=== PATIENT | female | born 1940 | race Caucasian/White ===

== ENCOUNTER 2017-09-26 12:11 | Inpatient (IN) | payer MEDICARE, OTHER ==
[2017-09-26] MEDS ORDERED: SODIUM CHLORIDE 0.9% 500 ML IV STA (12:45)
[2017-09-26] MEDS ORDERED: SODIUM CHLORIDE 0.9% 1,000 ML IV STA (12:45)
[2017-09-26] MEDS ORDERED: ONDANSETRON 4 MG/2 ML VIAL IVP STA (12:45)
--- NOTE | 2017-09-26 12:48 | ED ---
General Adult HPI - General Chief complaint: Nausea/Vomiting/Diarrhea Stated complaint: Vomiting, Diarrhea Time Seen by Provider: 09/26/17 12:40 Source: patient, family, RN notes reviewed, old records reviewed Mode of arrival: wheelchair Limitations: physical limitation - History of Present Illness Initial comments: 77-year-old female presented for evaluation of nausea vomiting and diarrhea. Patient's primary care physician is aware of these symptoms. She was sent in this morning by her home care nurse secondary to approximate 6 episodes of vomiting. This was yellow in color. She's been having basically daily vomiting for the past one month. She had had diarrhea which was sent for stool studies and according to patient's son this was negative. She's had no diarrhea and the past 2 days. She also reports cough and runny nose. Denies myalgias. Denies fever or chills. States she does have some central chest pain which is worse with cough. No typical sounding chest pain. Past medical history, patient is legally blind, she has hypertension, diabetes, and previous CVA, and Parkinson's. - Related Data Home Medications Medication Instructions Recorded Confirmed Carbidopa-Levodopa 25-100 mg 1 tab PO QID 01/22/15 09/26/17 [Sinemet 25-100] Diazepam [Valium] 5 mg PO BID PRN 01/22/15 09/26/17 Dipyridamole-Aspirin 200-25 mg 1 tab PO BID 01/22/15 09/26/17 [Aggrenox 25MG -200MG] Fesoterodine Fumarate [Toviaz] 4 mg PO QAM 01/22/15 09/26/17 HYDROcodone/APAP 10-325MG [[place] 1 tab PO Q6H PRN 01/22/15 09/26/17 10] Loratadine [Claritin] 10 mg PO QAM 01/22/15 09/26/17 Meclizine [Antivert] 25 mg PO HS 01/22/15 09/26/17 Pregabalin [Lyrica] 100 mg PO TID 03/22/16 09/26/17 Cholecalciferol (Vitamin D3) 2,000 unit PO DAILY@1200 09/26/17 09/26/17 [Vitamin D3] DULoxetine HCL [Cymbalta] 60 mg PO DAILY 09/26/17 09/26/17 Docusate [Colace] 100 mg PO DAILY PRN 09/26/17 09/26/17 Donepezil [Aricept] 10 mg PO BID 09/26/17 09/26/17 Levofloxacin [Levaquin] 250 mg PO MOWEFR 09/26/17 09/26/17 Meloxicam [Mobic] 7.5 mg PO BID 09/26/17 09/26/17 Montelukast [Singulair] 10 mg PO HS 09/26/17 09/26/17 Ranitidine HCl [Zantac] 150 mg PO BID 09/26/17 09/26/17 rOPINIRole HCL [Requip] 4 mg PO TID 09/26/17 09/26/17 tiZANidine HCL [Zanaflex] 4 mg PO HS 09/26/17 09/26/17 Allergies Allergy/AdvReac Type Severity Reaction Status Date / Time No Known Allergies Allergy Verified 09/26/17 12:48 Review of Systems ROS Statement: Those systems with pertinent positive or pertinent negative responses have been documented in the HPI. ROS Other: All systems not noted in ROS Statement are negative. Past Medical History Past Medical History: CVA/TIA, Dementia, Hyperlipidemia, Hypertension Additional Past Medical History / Comment(s): Blind. PARKINSON. WHEELCHAIR BOUND/ASSIST. History of Any Multi-Drug Resistant Organisms: None Reported Past Surgical History: Cholecystectomy, Orthopedic Surgery Additional Past Surgical History / Comment(s): ORIF LEFT HIP. CARPAL TUNNEL. Past Anesthesia/Blood Transfusion Reactions: No Reported Reaction Past Psychological History: Depression Smoking Status: Never smoker Past Alcohol Use History: None Reported Past Drug Use History: None Reported General Exam Limitations: physical limitation General appearance: alert, in no apparent distress Head exam: Present: atraumatic, normocephalic ENT exam: Present: mucous membranes dry Neck exam: Present: normal inspection. Absent: tenderness, meningismus Respiratory exam: Present: normal lung sounds bilaterally. Absent: respiratory distress Cardiovascular Exam: Present: regular rate, normal rhythm GI/Abdominal exam: Present: soft, tenderness (Mild epigastric tenderness to palpation). Absent: distended, guarding Extremities exam: Present: normal inspection, normal capillary refill. Absent: pedal edema Neurological exam: Present: alert. Absent: motor sensory deficit Psychiatric exam: Present: normal affect, normal mood Skin exam: Present: warm, dry, intact. Absent: cyanosis, diaphoretic Course Vital Signs 09/26/17 12:22 Temperature 98.2 F Pulse Rate 74 Respiratory 18 Rate Blood Pressure 152/72 O2 Sat by Pulse 93 L Oximetry Medical Decision Making - Medical Decision Making 77-year-old female presenting with chronic nausea vomiting and diarrhea. Patient's abdomen is soft, minimal epigastric tenderness. Laboratory studies reveal normal white blood cell count, stable hemoglobin, potassium is low at 3.1 which is replaced. Patient's symptoms have been ongoing for some time. X- ray of the abdomen is negative for acute findings no obstruction or free air. Chest x-ray negative for acute intrathoracic process. Influenza negative. UA shows no signs of infection. Patient will be admitted for IV hydration, likely replacement, and GI consultation. - Lab Data Result diagrams: 09/26/17 13:30 09/26/17 13:30 Lab Results 09/26/17 09/26/17 09/26/17 Range/Units 13:30 13:30 13:30 WBC 6.7 (3.8-10.6) k/uL RBC 4.67 (3.80-5.40) m/uL Hgb 14.1 (11.4-16.0) gm/dL Hct 43.8 (34.0-46.0) % MCV 93.8 (80.0-100.0) fL MCH 30.3 (25.0-35.0) pg MCHC 32.3 (31.0-37.0) g/dL RDW 13.7 (11.5-15.5) % Plt Count 181 (150-450) k/uL Neutrophils % 75 % Lymphocytes % 18 % Monocytes % 4 % Eosinophils % 1 % Basophils % 1 % Neutrophils # 5.1 (1.3-7.7) k/uL Lymphocytes # 1.2 (1.0-4.8) k/uL Monocytes # 0.3 (0-1.0) k/uL Eosinophils # 0.1 (0-0.7) k/uL Basophils # 0.0 (0-0.2) k/uL PT (9.0-12.0) sec INR (<1.2) APTT (22.0-30.0) sec Sodium 145 (137-145) mmol/L Potassium 3.1 L (3.5-5.1) mmol/L Chloride 104 (98-107) mmol/L Carbon Dioxide 29 (22-30) mmol/L Anion Gap 12 mmol/L BUN 13 (7-17) mg/dL Creatinine 0.70 (0.52-1.04) mg/dL Est GFR (MDRD) Af Amer >60 (>60 ml/min/1.73 sqM) Est GFR (MDRD) Non-Af >60 (>60 ml/min/1.73 sqM) Glucose 134 H (74-99) mg/dL Plasma Lactic Acid José Miguel 0.8 (0.7-2.0) mmol/L Calcium 9.2 (8.4-10.2) mg/dL Total Bilirubin 0.8 (0.2-1.3) mg/dL AST 34 (14-36) U/L ALT 13 (9-52) U/L Alkaline Phosphatase 73 (38-126) U/L Troponin I (0.000-0.034) ng/mL Total Protein 6.7 (6.3-8.2) g/dL Albumin 3.8 (3.5-5.0) g/dL Amylase 50 (30-110) U/L Lipase 105 (23-300) U/L Urine Color Urine Appearance (Clear) Urine pH (5.0-8.0) Ur Specific [place] (1.001-1.035) Urine Protein (Negative) Urine Glucose (UA) (Negative) Urine Ketones (Negative) Urine Blood (Negative) Urine Nitrite (Negative) Urine Bilirubin (Negative) Urine Urobilinogen (<2.0) mg/dL Ur Leukocyte Esterase (Negative) Urine RBC (0-5) /hpf Urine WBC (0-5) /hpf Hyaline Casts (0-2) /lpf Urine Mucus (None) /hpf Influenza Type A RNA (Not Detectd) Influenza Type B (PCR) (Not Detectd) 09/26/17 09/26/17 09/26/17 Range/Units 13:30 13:30 13:30 WBC (3.8-10.6) k/uL RBC (3.80-5.40) m/uL Hgb (11.4-16.0) gm/dL Hct (34.0-46.0) % MCV (80.0-100.0) fL MCH (25.0-35.0) pg MCHC (31.0-37.0) g/dL RDW (11.5-15.5) % Plt Count (150-450) k/uL Neutrophils % % Lymphocytes % % Monocytes % % Eosinophils % % Basophils % % Neutrophils # (1.3-7.7) k/uL Lymphocytes # (1.0-4.8) k/uL Monocytes # (0-1.0) k/uL Eosinophils # (0-0.7) k/uL Basophils # (0-0.2) k/uL PT 9.9 (9.0-12.0) sec INR 1.0 (<1.2) APTT 22.7 (22.0-30.0) sec Sodium (137-145) mmol/L Potassium (3.5-5.1) mmol/L Chloride (98-107) mmol/L Carbon Dioxide (22-30) mmol/L Anion Gap mmol/L BUN (7-17) mg/dL Creatinine (0.52-1.04) mg/dL Est GFR (MDRD) Af Amer (>60 ml/min/1.73 sqM) Est GFR (MDRD) Non-Af (>60 ml/min/1.73 sqM) Glucose (74-99) mg/dL Plasma Lactic Acid José Miguel (0.7-2.0) mmol/L Calcium (8.4-10.2) mg/dL Total Bilirubin (0.2-1.3) mg/dL AST (14-36) U/L ALT (9-52) U/L Alkaline Phosphatase (38-126) U/L Troponin I <0.012 (0.000-0.034) ng/mL Total Protein (6.3-8.2) g/dL Albumin (3.5-5.0) g/dL Amylase (30-110) U/L Lipase (23-300) U/L Urine Color Urine Appearance (Clear) Urine pH (5.0-8.0) Ur Specific [place] (1.001-1.035) Urine Protein (Negative) Urine Glucose (UA) (Negative) Urine Ketones (Negative) Urine Blood (Negative) Urine Nitrite (Negative) Urine Bilirubin (Negative) Urine Urobilinogen (<2.0) mg/dL Ur Leukocyte Esterase (Negative) Urine RBC (0-5) /hpf Urine WBC (0-5) /hpf Hyaline Casts (0-2) /lpf Urine Mucus (None) /hpf Influenza Type A RNA Not Detected (Not Detectd) Influenza Type B (PCR) Not Detected (Not Detectd) 09/26/17 Range/Units 13:40 WBC (3.8-10.6) k/uL RBC (3.80-5.40) m/uL Hgb (11.4-16.0) gm/dL Hct (34.0-46.0) % MCV (80.0-100.0) fL MCH (25.0-35.0) pg MCHC (31.0-37.0) g/dL RDW (11.5-15.5) % Plt Count (150-450) k/uL Neutrophils % % Lymphocytes % % Monocytes % % Eosinophils % % Basophils % % Neutrophils # (1.3-7.7) k/uL Lymphocytes # (1.0-4.8) k/uL Monocytes # (0-1.0) k/uL Eosinophils # (0-0.7) k/uL Basophils # (0-0.2) k/uL PT (9.0-12.0) sec INR (<1.2) APTT (22.0-30.0) sec Sodium (137-145) mmol/L Potassium (3.5-5.1) mmol/L Chloride (98-107) mmol/L Carbon Dioxide (22-30) mmol/L Anion Gap mmol/L BUN (7-17) mg/dL Creatinine (0.52-1.04) mg/dL Est GFR (MDRD) Af Amer (>60 ml/min/1.73 sqM) Est GFR (MDRD) Non-Af (>60 ml/min/1.73 sqM) Glucose (74-99) mg/dL Plasma Lactic Acid José [place] (0.7-2.0) mmol/L Calcium (8.4-10.2) mg/dL Total Bilirubin (0.2-1.3) mg/dL AST (14-36) U/L ALT (9-52) U/L Alkaline Phosphatase (38-126) U/L Troponin I (0.000-0.034) ng/mL Total Protein (6.3-8.2) g/dL Albumin (3.5-5.0) g/dL Amylase (30-110) U/L Lipase (23-300) U/L Urine Color Yellow Urine Appearance Clear (Clear) Urine pH 6.0 (5.0-8.0) Ur Specific [place] 1.023 (1.001-1.035) Urine Protein 2+ H (Negative) Urine Glucose (UA) Negative (Negative) Urine Ketones 2+ H (Negative) Urine Blood Trace H (Negative) Urine Nitrite Negative (Negative) Urine Bilirubin Negative (Negative) Urine Urobilinogen 2.0 (<2.0) mg/dL Ur Leukocyte Esterase Negative (Negative) Urine RBC 3 (0-5) /hpf Urine WBC 10 H (0-5) /hpf Hyaline Casts 14 H (0-2) /lpf Urine Mucus Many H (None) /hpf Influenza Type A RNA (Not Detectd) Influenza Type B (PCR) (Not Detectd) Disposition Clinical Impression: Dehydration, Nausea vomiting and diarrhea, Hypokalemia Disposition: ADMITTED IP TO THIS [facility] Condition: Stable Referrals: Vadim Gary DO [Primary Care Provider] - 1-2 days Decision to Admit Reason: Admit from EC Decision Date: 09/26/17 Decision Time: 15:29
[2017-09-26 13:44] LABS: Basophils % (A) 1 %; Eosinophils # (A) 0.1 k/uL (0-0.7); Eosinophils % (A) 1 %; HCT 43.8 % (34.0-46.0); HGB 14.1 gm/dL (11.4-16.0); Lymphocytes # (A) 1.2 k/uL (1.0-4.8); Lymphocytes % (A) 18 %; MCH 30.3 pg (25.0-35.0); MCHC 32.3 g/dL (31.0-37.0); MCV 93.8 fL (80.0-100.0); Mean Platelet Volume 7.1; Monocytes # (A) 0.3 k/uL (0-1.0); Monocytes % (A) 4 %; Neutrophils # (A) 5.1 k/uL (1.3-7.7); Neutrophils % (A) 75 %; Platelet Count 181 k/uL (150-450); RBC 4.67 m/uL (3.80-5.40); RDW 13.7 % (11.5-15.5); WBC 6.7 k/uL (3.8-10.6)
[2017-09-26 13:50] LABS: Partial Thromboplastin Time 22.7 sec (22.0-30.0); Prothrombin Time 9.9 sec (9.0-12.0)
[2017-09-26 13:55] LABS: ALT 13 U/L (9-52); AST 34 U/L (14-36); Albumin 3.8 g/dL (3.5-5.0); Alkaline Phosphatase 73 U/L (38-126); Amylase 50 U/L (30-110); Anion Gap 12 mmol/L; Blood Urea Nitrogen 13 mg/dL (7-17); Calcium 9.2 mg/dL (8.4-10.2); Carbon Dioxide 29 mmol/L (22-30); Chloride 104 mmol/L (98-107); Glucose 134 mg/dL (74-99); Lipase 105 U/L (23-300); Potassium 3.1 mmol/L (3.5-5.1); Sodium 145 mmol/L (137-145); Total Bilirubin 0.8 mg/dL (0.2-1.3); Total Protein 6.7 g/dL (6.3-8.2)
[2017-09-26 13:57] LABS: Appearance,Urine Clear (Clear); Bilirubin,Urine Negative (Negative); Blood,Urine Trace (Negative); Color,Urine Yellow; Glucose,Urine (UA) Negative (Negative); Hyaline Casts,Urine 14 /lpf (0-2); Ketones,Urine 2+ (Negative); Leukocyte Esterase,Urine Negative (Negative); Mucus,Urine Many /hpf; Nitrite,Urine Negative (Negative); Protein,Urine 2+ (Negative); RBC,Urine 3 /hpf (0-5); Specific Gravity,Urine 1.023 (1.001-1.035); WBC,Urine 10 /hpf (0-5)
--- NOTE | 2017-09-26 14:29 | XR ---
EXAMINATION TYPE: XR chest 2V DATE OF EXAM: 09/26/2017 COMPARISON: Prior chest x-ray May 30, 2016 HISTORY: On and off coughing for 3 months. TECHNIQUE: Frontal and lateral views of the chest are obtained. FINDINGS: There is chronic parenchymal change without suspicious focal air space opacity, pleural ef fusion, or pneumothorax seen. The cardiac silhouette size is mildly enlarged with atherosclerotic an d ectatic aorta. The osseous structures are demineralized. Cholecystectomy clips are noted. There i s vertebroplasty superior T12 endplate IMPRESSION: Chronic changes and mild cardiomegaly without acute pulmonary process.
--- NOTE | 2017-09-26 14:33 | XR ---
EXAMINATION TYPE: XR KUB DATE OF EXAM: 09/26/2017 2:22 PM CLINICAL HISTORY: On and off coughing for 3 months with occasional vomiting. TECHNIQUE: Two supine KUB images of the abdomen are obtained. COMPARISON: Abdominal x-ray series January 19, 2011. FINDINGS: Scattered gas is seen in non-distended stomach and small bowel loops. Gas and fecal materia l is seen in non-distended colon. Cholecystectomy clips are seen. There is vertebroplasty superior T1 2 level extending into disc space redemonstrated. Osseous structures are demineralized. Metallic hard lopez through healed fracture left proximal femur is redemonstrated. Extensive vascular calcification bilateral pelvis and groin region is again seen. No pneumoperitoneum is noted. IMPRESSION: Overall nonobstructive bowel gas pattern. No significant change from prior.
[2017-09-26] MEDS: POTASSIUM CHLORIDE 20 MEQ in WATER FOR INJECTION 1 100ML.BAG IVPB SCH ×2 (15:25→17:16)
[2017-09-26] MEDS ORDERED: NALOXONE 0.4 MG/ML 1 ML VIAL IV PRN (15:26)
[2017-09-26] MEDS ORDERED: hydrALAZINE HCL 20 MG/ML 1 ML VIAL IVP STA (15:37)
[2017-09-26 16:47] VITALS: BMI 30.2
[2017-09-26] MEDS ORDERED: DIAZEPAM 5 MG TAB PO PRN (18:22)
[2017-09-26] MEDS: DIPYRIDAMOLE-ASPIRIN 200-25 MG 1 EACH CPMP.12HR PO SCH (20:41)
[2017-09-26] MEDS: CARBIDOPA-LEVODOPA 25-100 MG 1 EACH TAB PO SCH ×2 (20:41→22:18)
[2017-09-26] MEDS: MELOXICAM 7.5 MG TAB PO SCH (20:41)
[2017-09-26] MEDS: MONTELUKAST 10 MG TAB PO SCH (20:41)
[2017-09-26] MEDS: FAMOTIDINE 20 MG TAB PO SCH (20:42)
[2017-09-26] MEDS: rOPINIRole HCL 4 MG TABLET PO SCH ×2 (20:42→22:17)
[2017-09-26] MEDS: tiZANidine 4 MG TAB PO SCH (20:42)
[2017-09-26] MEDS: DULoxetine HCL 60 MG CAPSULE.DR PO SCH (20:42)
[2017-09-26] MEDS: LORATADINE 10 MG TAB PO SCH (20:42)
[2017-09-26] MEDS: DONEPEZIL 10 MG TAB PO SCH (20:42)
[2017-09-26] MEDS: ONDANSETRON 4 MG/2 ML VIAL IVP PRN (20:49)
[2017-09-26] MEDS: PREGABALIN 100 MG CAP PO SCH ×2 (20:49→22:17)
[2017-09-26] MEDS ORDERED: MECLIZINE 25 MG TAB PO SCH (21:00)
[2017-09-27] MEDS: HYDROcodone/APAP 10-325MG 1 EACH TAB PO PRN ×2 (00:57→09:05)
[2017-09-27 07:14] LABS: Basophils % (A) 1 %; Eosinophils % (A) 1 %; HCT 43.8 % (34.0-46.0); HGB 13.3 gm/dL (11.4-16.0); Hypochromasia Slight; Lymphocytes # (A) 1.4 k/uL (1.0-4.8); Lymphocytes % (A) 19 %; MCH 29.9 pg (25.0-35.0); MCHC 30.4 g/dL (31.0-37.0); MCV 98.3 fL (80.0-100.0); Mean Platelet Volume 6.9; Monocytes # (A) 0.5 k/uL (0-1.0); Monocytes % (A) 7 %; Neutrophils # (A) 5.3 k/uL (1.3-7.7); Neutrophils % (A) 72 %; Platelet Count 166 k/uL (150-450); RBC 4.46 m/uL (3.80-5.40); RDW 13.7 % (11.5-15.5); WBC 7.4 k/uL (3.8-10.6)
[2017-09-27 07:26] LABS: ALT 25 U/L (9-52); AST 33 U/L (14-36); Albumin 3.3 g/dL (3.5-5.0); Alkaline Phosphatase 68 U/L (38-126); Anion Gap 8 mmol/L; Blood Urea Nitrogen 13 mg/dL (7-17); Calcium 9.1 mg/dL (8.4-10.2); Carbon Dioxide 32 mmol/L (22-30); Chloride 105 mmol/L (98-107); Glucose 107 mg/dL (74-99); Potassium 3.5 mmol/L (3.5-5.1); Sodium 145 mmol/L (137-145); Total Bilirubin 0.8 mg/dL (0.2-1.3)
[2017-09-27] MEDS: rOPINIRole HCL 4 MG TABLET PO SCH ×3 (07:33→21:18)
[2017-09-27] MEDS: OXYBUTYNIN XL 5 MG TAB.ER.24 PO SCH (07:34)
[2017-09-27] MEDS: CARBIDOPA-LEVODOPA 25-100 MG 1 EACH TAB PO SCH ×4 (07:34→21:18)
[2017-09-27] MEDS: MELOXICAM 7.5 MG TAB PO SCH ×2 (07:35→21:18)
[2017-09-27] MEDS: DONEPEZIL 10 MG TAB PO SCH (07:38)
[2017-09-27] MEDS: LORATADINE 10 MG TAB PO SCH (07:38)
[2017-09-27] MEDS: DIPYRIDAMOLE-ASPIRIN 200-25 MG 1 EACH CPMP.12HR PO SCH ×2 (07:39→21:19)
[2017-09-27] MEDS: DULoxetine HCL 60 MG CAPSULE.DR PO SCH (07:39)
[2017-09-27] MEDS: FAMOTIDINE 20 MG TAB PO SCH (07:39)
[2017-09-27] MEDS: PREGABALIN 100 MG CAP PO SCH (07:44)
[2017-09-27] MEDS ORDERED: PANTOPRAZOLE 40 MG/10 ML VIAL IV SCH (09:00)
[2017-09-27] MEDS: ONDANSETRON 4 MG/2 ML VIAL IVP PRN (09:51)
[2017-09-27] MEDS ORDERED: CHOLECALCIFEROL 1,000 UNIT TAB PO SCH (12:00)
--- NOTE | 2017-09-27 13:28 | CONS ---
CONSULTATION DATE OF SERVICE: 09/26/2017 REASON FOR CONSULTATION: Nausea, vomiting, and diarrhea. HISTORY OF PRESENTING ILLNESS: The patient is a 77-year-old pleasant white female admitted, was admitted to the hospital because of nausea, vomiting, and diarrhea on and off for the last one month duration. Apparently, she has been having episodes almost on a daily basis. Has about 3 to 4 loose watery bowel movements daily. Came to the emergency room and according to the nursing staff, she did not have any further episodes of nausea, vomiting. In fact, she had a solid bowel movement last night. She denies any abdominal pain. Reports no recent NSAID use. She does not recall being on any antibiotics recently. However, she states that she has been maintained on Levaquin for some lung infection. This morning, she is feeling better on a clear liquid diet, tolerating well. No rectal bleeding or melena. PAST MEDICAL HISTORY: Significant for hypertension, hyperlipidemia, dementia, Parkinson's disease, history of CVA in the past, degenerative joint disease. MEDICATIONS: At home, Zanaflex, Requip, Zantac, Singular, Mobic, Levaquin, Aricept, Colace, Cymbalta, vitamin D3, Lyrica, Antivert, Claritin, Toviaz, Aggrenox, Sinemet, and Valium. PAST SURGICAL HISTORY: Carpal tunnel repair, cholecystectomy. ALLERGIES: None. SOCIAL HISTORY: No smoking or alcohol use. FAMILY HISTORY: Unremarkable. REVIEW OF SYSTEMS: CARDIOPULMONARY: No chest pain, shortness of breath. GENITOURINARY: No dysuria or hematuria. MUSCULOSKELETAL: She complains of back pain. NEUROLOGY: Unremarkable. PSYCHIATRIC: Unremarkable. ENT: Vision unremarkable. CONSTITUTIONAL: No recent weight loss. No fever, chills, night sweats. HEMATOLOGY: Unremarkable. ENDOCRINE: Unremarkable. PHYSICAL EXAMINATION: She appears comfortable. No apparent distress. VITAL SIGNS: Stable. Blood pressure 160/77, pulse 80, temperature 97.2. HEENT EXAMINATION: Unremarkable. Conjunctivae are pink, sclera nonicteric. Oral cavity no lesions. NECK: No JVD or lymph node enlargement. CHEST: Clear to auscultation. HEART: Regular rate and rhythm. ABDOMEN: Soft. Bowel sounds are positive. No organomegaly. EXTREMITIES: No pedal edema. SKIN: No rashes. NEURO: Alert and oriented x3. No focal deficits. LABS: WBC is 5.8, hemoglobin 13.3, platelets are normal. Basic metabolic panel is within normal limits. PT, INR is within normal limits. Amylase and lipase are normal. IMPRESSION: This is a lady who presents to the hospital with nausea, vomiting, and diarrhea on and off for the last one month duration, but since being in the hospital did not have any episodes of any of the symptoms, presently on Pepcid and Protonix, tolerating well. As per the nursing staff, she had a solid bowel movement last night. She is on a clear liquid diet, tolerating well. RECOMMENDATIONS: 1. Continue with symptomatic and supportive care. 2. Antiemetics as needed. 3. Continue with Pepcid and Protonix 40 mg daily. 4. Since her symptoms are improving, I will not do any further endoscopic workup at this time. Will follow her closely during her hospital stay. Thank you for this consultation. MMIMANIL / GEOFFREYN: [id number] /
--- NOTE | 2017-09-27 15:34 | HP ---
HISTORY AND PHYSICAL DATE OF ADMISSION: 09/26/2017 PRESENTING COMPLAINT: Nausea, vomiting, diarrhea, tired. HISTORY OF PRESENTING COMPLAINT: This is a 77-year-old patient of Dr. Gary. History is obtained from the son at the bedside. Chronic stable medical conditions include Alzheimer's dementia, hypertension, hyperlipidemia, blind, parkinson disease, depression. The patient comes with a multitude of symptoms. The patient has been having nausea and vomiting off and on for at least 4 weeks. Yesterday she had a lot of vomiting for about an hour. Appetite has not been good. The patient does get intermittent occasional abdominal pain, sometimes gets diarrhea with a variable pattern. The patient at her baseline uses a wheelchair, can sometimes feed herself, other times not. She is able to eat small amounts. Daughter- in-law also helps her at home sometimes and sometimes [facility] comes out to help her. The patient is rather distant about the history herself. She is able to follow commands and answer some very simple questions. REVIEW OF SYSTEMS: CONSTITUTIONAL: Tired. HEENT: Blind. Decreased hearing. RESPIRATORY: None. CARDIOVASCULAR: None. GASTROINTESTINAL: As above. GENITOURINARY: Some incontinence. DERMATOLOGICAL: None. HEMATOLOGICAL: None. LYMPHATICS: None. PSYCHIATRY: Forgetful. NEUROLOGICAL: Patient does shake when she is made to stand up. PAST MEDICAL HISTORY: 1. Stroke. 2. Dementia. 3. Hypertension. 4. Hyperlipidemia. 5. Blind. 6. Parkinson disease. 7. Depression. PAST SURGICAL HISTORY: 1. Cholecystectomy. 2. ORIF of the left hip. SOCIAL HISTORY: No smoking. No alcohol. Wheelchair-bound. Lives with her son. FAMILY HISTORY: Congestive heart failure. HOME MEDICATION: 1. [place] 10 one tablet q.6 p.r.n. 2. Colace 100 mg p.o. daily p.r.n. 3. Mobic 7.5 p.o. b.i.d. 4. Levaquin 250 mg Saturday, Saturday, Saturday. 5. Valium 5 mg p.o. b.i.d. p.r.n. 6. Zanaflex 4 mg p.o. at bedtime. 7. Aricept 10 mg p.o. b.i.d. 8. Singulair 10 mg at bedtime. 9. Antivert 25 mg at bedtime. 10.Vitamin D3 2000 units p.o. daily. 11.Requip 4 mg p.o. t.i.d. 12.Lyrica 100 mg t.i.d. 13.Sinemet 25/100 one tablet q.i.d. 14.Zantac 150 p.o. b.i.d. 15.Aggrenox 1 tablet p.o. b.i.d. 16.Claritin 10 mg p.o. daily. 17.Toviaz 4 mg p.o. daily. 18.Cymbalta 60 mg p.o. daily. ALLERGIES: NONE. PHYSICAL EXAMINATION: VITAL SIGNS ON PRESENTATION: Temperature 98.2, pulse 74, respiration 18, blood pressure 152/72, pulse ox 93% on room air. GENERAL APPEARANCE: Well built. BMI 30.2. Lying in bed, tired-appearing. EYES: Pupils equal. Conjunctivae pale. HEENT: External appearance of nose and ears normal. Oral cavity dry mucous membrane. NECK: JVD not raised. Mass not palpable. RESPIRATORY: Effort normal. LUNGS: Fair air entry. CARDIOVASCULAR: First and second sounds normal. No edema. ABDOMEN: Soft, nontender. Liver and spleen not palpable. LYMPHATIC: No lymph node palpable in neck or axillae. PSYCHIATRY: Patient is able answer some questions. NEUROLOGICAL: Pupils equal. No facial asymmetry. Currently there is no tremor or rigidity. MUSCULOSKELETAL: Evidence of osteoarthritis in multiple joints. INVESTIGATIONS: White count 7.4, hemoglobin 13.3, potassium 3.1, BUN 13, creatinine 0.75. UA showing some ketone 2+, blood 1+. Influenza negative. ASSESSMENT: 1. This is a patient who presents with nausea, vomiting, diarrhea of intermittent and variable duration. It may be noted that the patient is on Aricept, Antivert, Claritin, and all have a significant anticholinergic effect that could well be causing these symptoms. At this point, we will go ahead and discontinue the same. 2. Alzheimer's dementia, late onset type. 3. Essential hypertension. 4. Hyperlipidemia. 5. The patient is blind in both eyes, not even able to perceive light. 6. Parkinson disease, idiopathic. 7. Depression not otherwise specified. PLAN: At this point we will stop the patient's Aricept, Antivert, Claritin. The patient is on Colace, which does not serve much of a function; instead replace with Metamucil for bulk forming. The patient is also on Valium, a rather hefty dos. Will discontinue that for right now. We will also stop patient's vitamin D3. Will see how she does. I did speak to the nurse to have the patient assisted in feeding. I am hoping that with stopping these drugs the patient actually will feel better. MMJULEE / GEOFFREYN: [id number] /
[2017-09-27] MEDS: PSYLLIUM HUSK 100% 6 GM PACKET PO SCH ×2 (16:38→16:57)
[2017-09-27] MEDS: MONTELUKAST 10 MG TAB PO SCH (21:18)
[2017-09-27] MEDS: tiZANidine 4 MG TAB PO SCH (21:19)
[2017-09-28] MEDS: HYDROcodone/APAP 10-325MG 1 EACH TAB PO PRN ×2 (02:06→11:01)
[2017-09-28] MEDS: ONDANSETRON 4 MG/2 ML VIAL IVP PRN (02:06)
[2017-09-28] MEDS ORDERED: ACETAMINOPHEN TAB 325 MG TAB PO STA (03:27)
[2017-09-28] MEDS ORDERED: METOCLOPRAMIDE 5 MG/ML 2 ML VIAL IVP STA (03:28)
[2017-09-28] MEDS: CARBIDOPA-LEVODOPA 25-100 MG 1 EACH TAB PO SCH ×4 (09:21→20:47)
[2017-09-28] MEDS: MELOXICAM 7.5 MG TAB PO SCH ×2 (09:21→19:46)
[2017-09-28] MEDS: DULoxetine HCL 60 MG CAPSULE.DR PO SCH (09:21)
[2017-09-28] MEDS: DIPYRIDAMOLE-ASPIRIN 200-25 MG 1 EACH CPMP.12HR PO SCH ×2 (09:21→19:47)
[2017-09-28] MEDS: rOPINIRole HCL 4 MG TABLET PO SCH ×3 (09:22→20:47)
[2017-09-28] MEDS: OXYBUTYNIN XL 5 MG TAB.ER.24 PO SCH (09:22)
[2017-09-28] MEDS: PANTOPRAZOLE 40 MG TABLET PO SCH (09:22)
[2017-09-28] MEDS: PREGABALIN 100 MG CAP PO SCH ×2 (09:30→19:46)
[2017-09-28] MEDS: PSYLLIUM HUSK 100% 6 GM PACKET PO SCH (11:09)
--- NOTE | 2017-09-28 17:51 | P.PN ---
Progress Note - Text Progress Note Date: 09/28/17 DATE OF SERVICE: 09/28/2017 PRESENTING COMPLAINT: Nausea vomiting diarrhea and increasing feeling of exhaustion. HISTORY OF PRESENT ILLNESS: 77-year-old female who is legally blind has Parkinson's disease, Alzheimer's dementia, presented with nausea and vomiting off and on for the last 4 weeks. Has had intermittent occasional abdominal pain with some diarrhea in a variable pattern. Uses a wheelchair at baseline. Able to feed herself sometimes other times not able. Eats very small amounts. Currently lives with her son and [id number]. Answers very simple questions and follows simple straightforward commands. Came for further evaluation because a lot of vomiting for about an hour appetite is been very poor. INTERVAL HISTORY: 09/28/2017: Sitting up on the bedside commode, complaining of abdominal pain and diarrhea. Appetite has been poor today. Barely eating 25 % of her breakfast. Requires 2 person assist to get to and from the bedside commode and back to bed. States she feels very poorly today. Last BM 09/28/2017. REVIEW OF SYSTEMS: Done for constitutional ,cardiovascular, GI, pulmonary with relevant findings as above. CURRENT MEDICATIONS [place], Sinemet, Aggrenox, Cymbalta, mobile, Singulair, Narcan, Zofran, oxybutynin, Protonix, Lyrica, Metamucil, Requip, Zanaflex. PHYSICAL EXAM VITAL SIGNS: Temp temperature 97.3, pulse 78, respiratory rate 20, blood pressure 154/84, oxygen saturation 93% on room air. GENERAL APPEARANCE: Sitting up at bedside commode, uncomfortable appearing. HENT: Normocephalic, JVD not raised. Mass not palpable. Oral cavity dry mucous membranes, external appearance of ears and nose normal. EYES:Pupils equal. Conjunctiva normal. RESPIRATORY: Respiratory effort normal. Lungs diminished to auscultation. CARDIOVASCULAR: First and second sounds normal. No edema. ABDOMEN: Soft. Liver and spleen not palpable. No tenderness. No mass palpable. PSYCHIATRY: Able to answer simple straightforward questions. Mood and affect somewhat anxious appearing. INVESTIGATIONS: LABS: None new ASSESSMENT: -Nausea vomiting diarrhea of intermittent and variable duration. Possible likely culprits may be Aricept, Antivert, Claritin which all have anticholinergic effects that can cause these symptoms, these agents have been discontinued. -Alzheimer's dementia, late onset type. -Essential hypertension. -Hyperlipidemia. 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 -Parkinson's disease, idiopathic -Depression, not otherwise specified. PLAN: Aricept Antivert and Claritin have all been DC'd however a significant improvement in patient's overall condition is not been noted. We'll continue to hold these medications for the time being and monitor and adjust as necessary. FINANCIAL SERVICES SALES REPRESENTATIVE statement: Patient was seen and examined by nurse practitioner Nikkie Holland and all elements of the case discussed with attending Dr. Mcdonald
[2017-09-28] MEDS: LACTATED RINGERS 1,000 ML IV SCH (19:46)
[2017-09-28] MEDS: tiZANidine 4 MG TAB PO SCH (19:47)
[2017-09-28] MEDS: MONTELUKAST 10 MG TAB PO SCH (19:47)
--- NOTE | 2017-09-29 00:44 | PN ---
PROGRESS NOTE DATE OF SERVICE: 09/28/17 ATTENDING NOTE: Patient was seen and examined by me. Discussed with nurse practitioner Ms. Holland. This is a patient presented with nausea, vomiting, diarrhea. Had discontinued the patient's Aricept, Antivert and Claritin. The patient did get some orange this morning and did throw up. The patient had some loose stools. Stool studies have come back negative. On exam abdomen is soft, nontender. The patient looks a bit more awake to me. ASSESSMENT: 1. Prominent anticholinergic side affects off Aricept, Antivert Claritin that all have been discontinued. 2. Persistent nausea, vomiting with poor oral intake. Could be a combination of the fact that the patient is on Mobic and Aggrenox. At this point discontinue the Aggrenox, just give baby aspirin. Add also Tums. 3. Intermittent diarrhea. We will add IV fluids. Metamucil, the patient had thrown up earlier. Will see how that goes. The patient definitely weak and tired. It is not safe to go home. Need at least 2 nights in the hospital as oral intake is poor. Getting IV fluids and medications are to be closely adjusted. We will also add Reglan to see that helps with the nausea. MMODL / IJN: [id number] /
[2017-09-29] MEDS: CALCIUM CARBONATE LIQUID 500 MG/5 ML CUP PO SCH ×3 (08:44→17:44)
[2017-09-29] MEDS: METOCLOPRAMIDE 5 MG TAB PO SCH ×3 (08:44→17:44)
[2017-09-29] MEDS: DULoxetine HCL 60 MG CAPSULE.DR PO SCH (08:45)
[2017-09-29] MEDS: ASPIRIN 81 MG PO SCH (08:45)
[2017-09-29] MEDS: PANTOPRAZOLE 40 MG TABLET PO SCH (08:45)
[2017-09-29] MEDS: CARBIDOPA-LEVODOPA 25-100 MG 1 EACH TAB PO SCH ×3 (08:45→17:44)
[2017-09-29] MEDS: OXYBUTYNIN XL 5 MG TAB.ER.24 PO SCH (08:45)
[2017-09-29] MEDS: rOPINIRole HCL 4 MG TABLET PO SCH ×3 (08:46→21:47)
[2017-09-29] MEDS: PSYLLIUM HUSK 100% 6 GM PACKET PO SCH ×2 (08:46→17:42)
[2017-09-29] MEDS: LACTATED RINGERS 1,000 ML IV SCH ×2 (08:46→21:48)
[2017-09-29] MEDS: PREGABALIN 100 MG CAP PO SCH ×2 (08:49→21:47)
[2017-09-29] MEDS: HYDROcodone/APAP 10-325MG 1 EACH TAB PO PRN (13:43)
--- NOTE | 2017-09-29 20:06 | P.PN ---
Progress Note - Text Progress Note Date: 09/29/17 DATE OF SERVICE: 09/29/2017 PRESENTING COMPLAINT: Nausea vomiting diarrhea and increasing feeling of exhaustion. HISTORY OF PRESENT ILLNESS: 77-year-old female who is legally blind has Parkinson's disease, Alzheimer's dementia, presented with nausea and vomiting off and on for the last 4 weeks. Has had intermittent occasional abdominal pain with some diarrhea in a variable pattern. Uses a wheelchair at baseline. Able to feed herself sometimes other times not able. Eats very small amounts. Currently lives with her son and [id number]. Answers very simple questions and follows simple straightforward commands. Came for further evaluation because a lot of vomiting for about an hour appetite is been very poor. INTERVAL HISTORY: 09/29/2017: Lying in bed, no complaints of any abdominal pain continues to have some diarrhea had 2 episodes today. Appetite is improving slightly needs lots of encouragement. Ensure shakes added and is drinking those. Requires a 2 person assist to get in and out of the bed. Was up the chair for most of the day. 09/28/2017: Sitting up on the bedside commode, complaining of abdominal pain and diarrhea. Appetite has been poor today. Barely eating 25 % of her breakfast. Requires 2 person assist to get to and from the bedside commode and back to bed. States she feels very poorly today. Last BM 09/28/2017. REVIEW OF SYSTEMS: Done for constitutional ,cardiovascular, GI, pulmonary with relevant findings as above. CURRENT MEDICATIONS [place], Sinemet, Aggrenox, Cymbalta, mobile, Singulair, Narcan, Zofran, oxybutynin, Protonix, Lyrica, Metamucil, Requip, Zanaflex. PHYSICAL EXAM VITAL SIGNS: Temperature 97.5, pulse 69, respiratory rate 16, blood pressure 150/74, oxygen saturation 97% on 2 L GENERAL APPEARANCE: During in bed appears comfortable HENT: Normocephalic, JVD not raised. Mass not palpable. Oral cavity dry mucous membranes, external appearance of ears and nose normal. EYES:Pupils equal. Conjunctiva normal. RESPIRATORY: Respiratory effort normal. Lungs diminished to auscultation. CARDIOVASCULAR: First and second sounds normal. No edema. ABDOMEN: Soft. Liver and spleen not palpable. No tenderness. No mass palpable. PSYCHIATRY: Able to answer simple straightforward questions. Mood and affect normal. INVESTIGATIONS: LABS: None new ASSESSMENT: -Chronic anticholinergic side effect of Aricept, Antivert, Claritin which have been discontinued. -Persistent nausea vomiting with poor oral intake likely a combination of low back and Aggrenox in patient's regimen Aggrenox discontinued baby aspirin and Tums added -Intermittent diarrhea, IV fluids and Metamucil added -Alzheimer's dementia, late onset type. -Essential hypertension. -Hyperlipidemia. 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 -Parkinson's disease, idiopathic -Depression, not otherwise specified. PLAN: IV fluids continue, Reglan added seems to help with nausea. Appetite improving , doing well with protein shakes. Diarrhea improving as well. Physical therapy recommending patient to return to home patient they feel she is at her baseline. Plan of care discussed at the bedside. We will continue to follow closely. FISHING GUIDE statement: Patient was seen and examined by nurse practitioner Nikkie Holland and all elements of the case discussed with attending Dr. Mcdonald
--- NOTE | 2017-09-29 21:42 | PN ---
PROGRESS NOTE DATE OF SERVICE: 09/29/17 ATTENDING NOTE: The patient seen and examined by me. I discussed with my nurse practitioner, Ms. Frenchcourtneytyra. The patient is doing much better, keeping her food down. No further nausea, vomiting. The patient had not taken her Metamucil, asked her to take it. PHYSICAL EXAMINATION: Afebrile. Pulse 73, blood pressure 130/69. On exam lying in bed comfortable. Lungs are clear. Cardiovascular 1st and 2nd sounds normal. ABDOMEN: Soft, nontender. ASSESSMENT: 1. Anticholinergic effect from Aricept, Antivert, Claritin that all have been discontinued. 2. Persistent nausea, vomiting, combination of patient being on Aggrenox and Mobic that have all been discontinued. 3. Intermittent diarrhea probably functional. 4. Based on examination, I am not sure if the patient has actually had Parkinson's disease. PLAN: At this point we will stop the Sinemet and watch patient closely as drug is rather short short-acting duration. Will will know how patient is doing off of it. The patient is also on Requip, that should help with the same. The patient's really pain is well controlled otherwise. Follow. MMODL / IJN: [id number] /
[2017-09-29] MEDS: MONTELUKAST 10 MG TAB PO SCH (21:47)
[2017-09-29] MEDS: tiZANidine 4 MG TAB PO SCH (21:48)
[2017-09-30] MEDS: CALCIUM CARBONATE LIQUID 500 MG/5 ML CUP PO SCH ×3 (07:47→18:14)
[2017-09-30] MEDS: METOCLOPRAMIDE 5 MG TAB PO SCH ×3 (07:47→18:14)
[2017-09-30] MEDS: LACTATED RINGERS 1,000 ML IV SCH ×2 (07:48→22:06)
[2017-09-30] MEDS: PANTOPRAZOLE 40 MG TABLET PO SCH (07:48)
[2017-09-30] MEDS: ASPIRIN 81 MG PO SCH (07:49)
[2017-09-30] MEDS: OXYBUTYNIN XL 5 MG TAB.ER.24 PO SCH (07:50)
[2017-09-30] MEDS: DULoxetine HCL 60 MG CAPSULE.DR PO SCH (07:50)
[2017-09-30] MEDS: rOPINIRole HCL 4 MG TABLET PO SCH ×3 (07:50→22:06)
[2017-09-30] MEDS: PREGABALIN 100 MG CAP PO SCH (07:54)
[2017-09-30] MEDS: PSYLLIUM HUSK 100% 6 GM PACKET PO SCH (10:06)
[2017-09-30] MEDS: HYDROcodone/APAP 10-325MG 1 EACH TAB PO PRN (13:04)
--- NOTE | 2017-09-30 19:52 | P.PN ---
Progress Note - Text Progress Note Date: 09/30/17 DATE OF SERVICE: 09/30/2017 PRESENTING COMPLAINT: Nausea vomiting diarrhea and increasing feeling of exhaustion. HISTORY OF PRESENT ILLNESS: 77-year-old female who is legally blind has Parkinson's disease, Alzheimer's dementia, presented with nausea and vomiting off and on for the last 4 weeks. Has had intermittent occasional abdominal pain with some diarrhea in a variable pattern. Uses a wheelchair at baseline. Able to feed herself sometimes other times not able. Eats very small amounts. Currently lives with her son and [id number]. Answers very simple questions and follows simple straightforward commands. Came for further evaluation because a lot of vomiting for about an hour appetite is been very poor. INTERVAL HISTORY: 09/30/2017: Sitting up in a chair at the bedside, needed to use the bathroom didn't quite make it. Getting cleaned up by staff. Patient is very weak and very difficult for her to stand without some sort of assistance. Shaking quite a bit. Appetite is improving patient ate about 50% of her breakfast. Drinking ensure shakes. Last BM 09/30/2017. 09/29/2017: Lying in bed, no complaints of any abdominal pain continues to have some diarrhea had 2 episodes today. Appetite is improving slightly needs lots of encouragement. Ensure shakes added and is drinking those. Requires a 2 person assist to get in and out of the bed. Was up the chair for most of the day. 09/28/2017: Sitting up on the bedside commode, complaining of abdominal pain and diarrhea. Appetite has been poor today. Barely eating 25 % of her breakfast. Requires 2 person assist to get to and from the bedside commode and back to bed. States she feels very poorly today. Last BM 09/28/2017. REVIEW OF SYSTEMS: Done for constitutional ,cardiovascular, GI, pulmonary with relevant findings as above. CURRENT MEDICATIONS [place], Sinemet, Aggrenox, Cymbalta, mobile, Singulair, Narcan, Zofran, oxybutynin, Protonix, Lyrica, Metamucil, Requip, Zanaflex. PHYSICAL EXAM VITAL SIGNS: Temperature 98.4, pulse 75, respiratory rate 16, blood pressure 177/76, oxygen saturation 95% on room air. GENERAL APPEARANCE: Sitting up in a chair at the bedside, anxious appearing HENT: Normocephalic, JVD not raised. Mass not palpable. Oral cavity dry mucous membranes, external appearance of ears and nose normal. EYES:Pupils equal. Conjunctiva normal. RESPIRATORY: Respiratory effort normal. Lungs diminished to auscultation. CARDIOVASCULAR: First and second sounds normal. No edema. ABDOMEN: Soft. Liver and spleen not palpable. No tenderness. No mass palpable. PSYCHIATRY: Able to answer simple straightforward questions. Mood and affect normal. INVESTIGATIONS: LABS: None new ASSESSMENT: -Chronic anticholinergic side effect of Aricept, Antivert, Claritin which have been discontinued. -Persistent nausea vomiting with poor oral intake likely a combination of Mobic and Aggrenox in patient's regimen Aggrenox discontinued baby aspirin and Tums added -Intermittent diarrhea, IV fluids and Metamucil added -Alzheimer's dementia, late onset type. -Essential hypertension. -Hyperlipidemia. 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 -Parkinson's disease, idiopathic -Depression, not otherwise specified. PLAN: IV fluids continue, Reglan added seems to help with nausea. Appetite improving , doing well with protein shakes. Had only 2 episodes of diarrhea this morning. Metamucil seems to be helping as well. Physical therapy recommending that patient has 24-hour care whether she returns home or to an ECF or to subacute rehab. Plan of care discussed at the bedside. Family would like patient to go to rehab for strengthening and gait training. Preference to [facility] or [facility] in that order. Discharge planning hopefully for the next 48 hours or so. We will continue to follow closely. YEAST CAKE CUTTER statement: Patient was seen and examined by nurse practitioner Nikkie Holland and all elements of the case discussed with attending Dr. Mcdonald
--- NOTE | 2017-09-30 21:24 | PN ---
PROGRESS NOTE DATE OF SERVICE: 09/30/17. ATTENDING NOTE: Patient seen examined by me. I discussed with nurse practitioner, Abel Amalia. The patient is doing much better. No further nausea, vomiting, looks more perky, otherwise remains weak as before. The patient started taking some Metamucil, only had 1 loose stool. On exam, lying in bed, comfortable. More communicative. The patient has no rigidity. No tremors. No bradykinesia. ASSESSMENT: 1. Anticholinergic effects from Aricept, Antivert, Claritin that have all been discontinued. 2. Persistent nausea vomiting from combination patient being on Aggrenox and Mobic, all have been discontinued. 3. Intermittent diarrhea. Functional better with Metamucil. 4. Clinically does not showing signs of Parkinson disease and Sinemet was discontinued. 5. Restless leg syndrome. The patient is having some more leg movements. Will increase the patient's Lyrica to 150 twice a day, which is her home dose. At this point will continue with current medication and treatment plan. We will also stop the Reglan if she can without the same. Watch her. See how she does. MMODL / IJN: [id number] /
[2017-09-30] MEDS: MONTELUKAST 10 MG TAB PO SCH (22:06)
[2017-09-30] MEDS: tiZANidine 4 MG TAB PO SCH (22:06)
[2017-09-30] MEDS: PREGABALIN 75 MG CAP PO SCH (22:06)
[2017-10-01 07:49] LABS: Basophils % (A) 1 %; Eosinophils # (A) 0.3 k/uL (0-0.7); Eosinophils % (A) 6 %; HCT 37.3 % (34.0-46.0); HGB 11.2 gm/dL (11.4-16.0); Lymphocytes # (A) 1.5 k/uL (1.0-4.8); Lymphocytes % (A) 30 %; MCH 29.2 pg (25.0-35.0); MCHC 29.9 g/dL (31.0-37.0); MCV 97.4 fL (80.0-100.0); Mean Platelet Volume 7.5; Monocytes # (A) 0.4 k/uL (0-1.0); Monocytes % (A) 7 %; Neutrophils # (A) 2.7 k/uL (1.3-7.7); Neutrophils % (A) 54 %; Platelet Count 133 k/uL (150-450); RBC 3.83 m/uL (3.80-5.40); RDW 13.9 % (11.5-15.5); WBC 5.1 k/uL (3.8-10.6)
[2017-10-01 08:10] LABS: Anion Gap 8 mmol/L; Blood Urea Nitrogen 15 mg/dL (7-17); Calcium 8.7 mg/dL (8.4-10.2); Carbon Dioxide 34 mmol/L (22-30); Chloride 101 mmol/L (98-107); Glucose 98 mg/dL (74-99); Potassium 3.2 mmol/L (3.5-5.1); Sodium 143 mmol/L (137-145)
[2017-10-01] MEDS ORDERED: NITROGLYCERIN SL TABS 0.4 MG TAB SUBLINGUAL PRN (11:24)
[2017-10-01] MEDS ORDERED: Potassium Replacement Protocol 1 EACH MISC MISCELLANE PRN (11:27)
[2017-10-01] MEDS: ASPIRIN 81 MG PO SCH (11:32)
[2017-10-01] MEDS: PANTOPRAZOLE 40 MG TABLET PO SCH (11:32)
[2017-10-01] MEDS: CALCIUM CARBONATE LIQUID 500 MG/5 ML CUP PO SCH ×3 (11:32→19:11)
[2017-10-01] MEDS: OXYBUTYNIN XL 5 MG TAB.ER.24 PO SCH (11:33)
[2017-10-01] MEDS: rOPINIRole HCL 4 MG TABLET PO SCH ×3 (11:33→21:51)
[2017-10-01] MEDS: DULoxetine HCL 60 MG CAPSULE.DR PO SCH (11:33)
[2017-10-01] MEDS: PREGABALIN 75 MG CAP PO SCH ×2 (11:43→21:51)
[2017-10-01] MEDS: POTASSIUM CHLORIDE ER 20 MEQ TAB.ER PO SCH ×2 (12:00→13:00)
[2017-10-01] MEDS: PSYLLIUM HUSK 100% 6 GM PACKET PO SCH (14:01)
[2017-10-01] MEDS: ISOSORBIDE MONONITRATE ER 30 MG TAB.ER.24H PO SCH (14:01)
[2017-10-01] MEDS ORDERED: POTASSIUM CHLORIDE ER 20 MEQ TAB.ER PO STA (16:13)
[2017-10-01] MEDS: LACTATED RINGERS 1,000 ML IV SCH (17:28)
--- NOTE | 2017-10-01 18:11 | P.PN ---
Progress Note - Text Progress Note Date: 10/01/17 DATE OF SERVICE: 10/01/2017 PRESENTING COMPLAINT: Nausea vomiting diarrhea and increasing feeling of exhaustion. HISTORY OF PRESENT ILLNESS: 77-year-old female who is legally blind has Parkinson's disease, Alzheimer's dementia, presented with nausea and vomiting off and on for the last 4 weeks. Has had intermittent occasional abdominal pain with some diarrhea in a variable pattern. Uses a wheelchair at baseline. Able to feed herself sometimes other times not able. Eats very small amounts. Currently lives with her son and [id number]. Answers very simple questions and follows simple straightforward commands. Came for further evaluation because a lot of vomiting for about an hour appetite is been very poor. INTERVAL HISTORY: 10/01/2017: Patient lying in bed appears comfortable. Quite a bit more perky today. Ate about 50% of her breakfast today tolerated it well. Also drinking ensure shakes. No further episodes of nausea vomiting or diarrhea. Continues to receive Metamucil to help bulk up stools. Is quite weak has a great deal of difficulty transferring from bed to chair. Last BM 10/01/2017. 09/30/2017: Sitting up in a chair at the bedside, needed to use the bathroom didn't quite make it. Getting cleaned up by staff. Patient is very weak and very difficult for her to stand without some sort of assistance. Shaking quite a bit. Appetite is improving patient ate about 50% of her breakfast. Drinking ensure shakes. Last BM 09/30/2017. 09/29/2017: Lying in bed, no complaints of any abdominal pain continues to have some diarrhea had 2 episodes today. Appetite is improving slightly needs lots of encouragement. Ensure shakes added and is drinking those. Requires a 2 person assist to get in and out of the bed. Was up the chair for most of the day. 09/28/2017: Sitting up on the bedside commode, complaining of abdominal pain and diarrhea. Appetite has been poor today. Barely eating 25 % of her breakfast. Requires 2 person assist to get to and from the bedside commode and back to bed. States she feels very poorly today. Last BM 09/28/2017. REVIEW OF SYSTEMS: Done for constitutional ,cardiovascular, GI, pulmonary with relevant findings as above. CURRENT MEDICATIONS [place], Sinemet, Aggrenox, Cymbalta, mobile, Singulair, Narcan, Zofran, oxybutynin, Protonix, Lyrica, Metamucil, Requip, Zanaflex. PHYSICAL EXAM VITAL SIGNS: Temperature 98.6, pulse 69, respiratory rate 18, blood pressure 158/71, oxygen saturation 93% on room air. GENERAL APPEARANCE: Lying in bed appears comfortable HENT: Normocephalic, JVD not raised. Mass not palpable. Oral cavity dry mucous membranes, external appearance of ears and nose normal. EYES:Pupils equal. Conjunctiva normal. RESPIRATORY: Respiratory effort normal. Lungs diminished to auscultation. CARDIOVASCULAR: First and second sounds normal. No edema. ABDOMEN: Soft. Liver and spleen not palpable. No tenderness. No mass palpable. PSYCHIATRY: Able to answer simple straightforward questions. Mood and affect normal. INVESTIGATIONS: LABS: None new ASSESSMENT: -Chronic anticholinergic side effect of Aricept, Antivert, Claritin which have been discontinued. -Persistent nausea vomiting with poor oral intake likely a combination of Mobic and Aggrenox in patient's regimen Aggrenox discontinued baby aspirin and Tums added -Intermittent diarrhea, functional better with Metamucil added -Alzheimer's dementia, late onset type. -Essential hypertension. -Hyperlipidemia. 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 -Parkinson's disease, idiopathic, -Rest leg syndrome -Depression, not otherwise specified. PLAN: IV fluids continue, we'll leave the Aricept Antivert and Claritin off for now. Appetite improving, doing well with protein shakes. Had only 2 episodes of diarrhea this morning. Metamucil seems to be helping as well. Sinemet discontinued today as patient really does not show any clinical signs of Parkinson's disease. Has a lot of restless leg movements Lyrica was increased to 150 mg twice daily which was her home dose. Son at the bedside today medication changes reviewed in detail with Dr. Mcdonald and nurse practitioner. Plan of care discussed at the bedside. Awaiting insurance authorization to [facility] or [facility] for rehab. Discharge planning hopefully for the next 48 hours or so. We will continue to follow closely. ELECTRICAL CAD TECHNICIAN statement: Patient was seen and examined by nurse practitioner Nikkie Holland and all elements of the case discussed with attending Dr. Mcdonald
--- NOTE | 2017-10-01 20:19 | PN ---
PROGRESS NOTE DATE OF SERVICE: 10/01/2017 ATTENDING NOTE: This patient was seen and examined by me. I discussed the case with the nurse practitioner Ms. Holland. The patient is doing well, tolerating all her diet. She has been in bed. Only 1 or 2 bowel movements a day. Far more perky. Son was at the bedside today. We went into depth with them to tell him what all we had done and explained the change in medications, with increased dose of Lyrica, back to her home dose. Patient's restless legs are doing much better. I had stopped the patient's Sinemet. The patient has had no adverse effects from that clinically. On examination, patient has no signs of Parkinson's; no rigidity, no bradykinesia, no tremor. If patient continues to do well, we will discharge the patient to rehab tomorrow if approved. MMJULEE / IJPradip: [id number] /
[2017-10-01] MEDS: tiZANidine 4 MG TAB PO SCH (21:51)
[2017-10-01] MEDS: MONTELUKAST 10 MG TAB PO SCH (21:51)
[2017-10-01 23:50] VITALS: RESP 16
[2017-10-02 07:29] VITALS: TEMP 97.9
[2017-10-02] MEDS: CALCIUM CARBONATE LIQUID 500 MG/5 ML CUP PO SCH ×2 (10:50→11:41)
[2017-10-02] MEDS: rOPINIRole HCL 4 MG TABLET PO SCH ×2 (10:50→15:09)
[2017-10-02] MEDS: ASPIRIN 81 MG PO SCH (10:50)
[2017-10-02] MEDS: DULoxetine HCL 60 MG CAPSULE.DR PO SCH (11:38)
[2017-10-02] MEDS: PANTOPRAZOLE 40 MG TABLET PO SCH (11:38)
[2017-10-02] MEDS: OXYBUTYNIN XL 5 MG TAB.ER.24 PO SCH (11:38)
[2017-10-02] MEDS: ISOSORBIDE MONONITRATE ER 30 MG TAB.ER.24H PO SCH (11:38)
[2017-10-02] MEDS: MAGNESIUM SULFATE-D5W PMX 1 GM in DEXTROSE/WATER 1 100ML.BAG IVPB ONE ×2 (11:38→12:01)
[2017-10-02] MEDS: PREGABALIN 75 MG CAP PO SCH (11:39)
[2017-10-02] MEDS: PSYLLIUM HUSK 100% 6 GM PACKET PO SCH (11:41)
[2017-10-02] MEDS ORDERED: MAGNESIUM OXIDE 400 MG TAB PO STA (11:57)
[2017-10-02 14:41] VITALS: BP 149/70; PULSE 79
[2017-10-02] MEDS ORDERED: LISINOPRIL-HCTZ 10-12.5 MG 1 EACH TAB PO SCH (14:45)
--- NOTE | 2017-10-02 15:14 | DS ---
DISCHARGE SUMMARY DATE OF ADMISSION: 09/26/2017. DATE OF DISCHARGE: 10/01/2017 FINAL DIAGNOSES: 1. Severe anticholinergic effects from Aricept, Antivert, Claritin causing diarrhea, constipation, discontinued. 2. Persistent nausea vomiting as a side effect. Patient being on Mobic and Aggrenox, discontinued. 3. Also intermittent diarrhea, functional doing better with Metamucil. 4. Restless legs syndrome. 5. Alzheimer's dementia, late onset type. 6. Essential hypertension. 7. Hyperlipidemia. 8. Patient is blind in both the eyes, not even able to perceive light. 9. Depression, not otherwise specified. HOSPITAL COURSE: This patient presented with multiple issues, nausea, vomiting, upper GI discomfort. hence patient's Aggrenox and Mobic was discontinued. Also, patient anticholinergic drugs Aricept, Antivert, Claritin all were discontinued. Patient clinically did have have much signs of Parkinson's disease. There is no tremor, no rigidity, no bradykinesia. Sinemet was discontinued. Patient really did well with these changes. By the time of discharge, tolerating a diet. Bowels down to once a day, also using Metamucil. Care was discussed at length with the patient. Medications were described. Doing well. PHYSICAL EXAM: Patient is comfortable, lungs are clear. CARDIOVASCULAR: First and second sounds are normal, patient is blind. DISCHARGE MEDICATIONS: 1. Toviaz 4 mg p.o. daily. 2. Lyrica 100 mg p.o. t.i.d. 3. Vitamin D3 one thousand units p.o. daily. 4. Cymbalta 50 mg p.o. daily. 5. Singulair 10 mg p.o. q.h.s. 6. Zanaflex 4 mg q.h.s. 7. Aspirin 81 mg p.o. daily. 8. Metamucil 6 g p.o. daily. 9. [place] 10 one tablet q.6 p.r.n. 10.Imdur ER 30 mg p.o. daily. 11.Zestoretic /12.5 one tablet p.o. daily. 12.Nitrostat 0.4 sublingual q.5 p.r.n. 13.Protonix 40 mg p.o. with breakfast. 14.Requip 4 mg p.o. t.i.d. DISPOSITION: [facility]. Follow up with Dr. Gary at [facility]. DIET: Dysphagia to ground diet with finger foods. Discussion of discharge planning more than 35 minutes. MMODL / IJN: [id number] /
== END 2017-10-02 18:15 | DRG 395 ==
LOC: EC 12:11 → INTOOBSV 15:26 → 3SUR 15:26 → OBSVTOIN 09-28 19:11 → 5MS5E 10-02 00:36
PROVIDERS: ADMIT Hospitalist; ATTEND Hospitalist
DX: K52.1 Toxic gastroenteritis and colitis (principal); G20 Parkinson's disease; G30.1 Alzheimer's disease with late onset; F02.80 Dementia in other diseases classified elsewhere, unspecified severity, without behavioral disturbance, psychotic disturbance, mood disturbance, and anxiety; T44.1X5A Adverse effect of other parasympathomimetics [cholinergics], initial encounter; E78.5 Hyperlipidemia, unspecified; T45.0X5A Adverse effect of antiallergic and antiemetic drugs, initial encounter; F32.9 Major depressive disorder, single episode, unspecified; G25.81 Restless legs syndrome; H54.8 Legal blindness, as defined in USA; I10 Essential (primary) hypertension; K59.03 Drug induced constipation; R11.2 Nausea with vomiting, unspecified; Z82.49 Family history of ischemic heart disease and other diseases of the circulatory system; Z86.73 Personal history of transient ischemic attack (TIA), and cerebral infarction without residual deficits; Z99.3 Dependence on wheelchair; Z79.2 Long term (current) use of antibiotics; Z79.891 Long term (current) use of opiate analgesic; Z79.51 Long term (current) use of inhaled steroids; Z79.899 Other long term (current) drug therapy
CPT/HCPCS: 36415; 71046; 74018; 80048; 80053; 81001; 82150; 83605; 83690; 83735; 84132; 84484; 85025; 85610; 85730; 87324; 87328; 87329; 87502; 93005; 94760; 96361; 96374; 96375; 99285

== ENCOUNTER 2017-11-19 17:13 | Observation (INO) | payer MEDICARE, OTHER ==
[2017-11-19] MEDS ORDERED: NITROGLYCERIN OINT 1 INCH/GM PACKET TOPICAL STA (17:31)
[2017-11-19] MEDS ORDERED: SODIUM CHLORIDE 0.9% 1,000 ML IV STA (17:31)
[2017-11-19] MEDS ORDERED: ONDANSETRON 4 MG/2 ML VIAL IVP STA (17:31)
[2017-11-19] MEDS ORDERED: MORPHINE SULFATE 4MG/4ML SYRG IVP STA (17:31)
[2017-11-19 17:43] LABS: Basophils % (A) 0 %; Eosinophils # (A) 0.3 k/uL (0-0.7); Eosinophils % (A) 3 %; HCT 39.6 % (34.0-46.0); Lymphocytes # (A) 1.9 k/uL (1.0-4.8); Lymphocytes % (A) 23 %; MCH 29.6 pg (25.0-35.0); MCHC 32.8 g/dL (31.0-37.0); MCV 90.1 fL (80.0-100.0); Mean Platelet Volume 7.5; Monocytes # (A) 0.5 k/uL (0-1.0); Monocytes % (A) 6 %; Neutrophils # (A) 5.6 k/uL (1.3-7.7); Neutrophils % (A) 67 %; Platelet Count 163 k/uL (150-450); RBC 4.39 m/uL (3.80-5.40); RDW 14.5 % (11.5-15.5); WBC 8.4 k/uL (3.8-10.6)
[2017-11-19 17:54] LABS: ALT 25 U/L (9-52); AST 41 U/L (14-36); Albumin 3.6 g/dL (3.5-5.0); Alkaline Phosphatase 71 U/L (38-126); Anion Gap 10 mmol/L; Blood Urea Nitrogen 19 mg/dL (7-17); Calcium 9.1 mg/dL (8.4-10.2); Carbon Dioxide 32 mmol/L (22-30); Chloride 98 mmol/L (98-107); Glucose 120 mg/dL (74-99); Magnesium 1.7 mg/dL (1.6-2.3); Sodium 140 mmol/L (137-145); Total Bilirubin 1.5 mg/dL (0.2-1.3); Total Protein 7.1 g/dL (6.3-8.2)
[2017-11-19 17:55] LABS: Creatine Kinase 130 U/L (30-135)
[2017-11-19 17:59] LABS: Potassium 4.1 mmol/L (3.5-5.1)
--- NOTE | 2017-11-19 17:59 | XR ---
EXAMINATION TYPE: XR chest 2V DATE OF EXAM: 11/19/2017 COMPARISON: 09/26/2017 HISTORY: Chest pain TECHNIQUE: Frontal and lateral views of the chest are obtained. FINDINGS: There is chronic right hemidiaphragm elevation and chronic parenchymal changes unchanged f rom the prior. No new focal consolidation, sizable pleural effusion or pneumothorax are seen. Cardiac silhouette is mildly enlarged. Cholecystectomy clips are noted within the right upper quadrant. Ther e is diffuse osseous demineralization and mild multilevel degenerative changes of the thoracic spine. IMPRESSION: Chronic changes with no acute cardiopulmonary process.
[2017-11-19 18:01] LABS: D-Dimer 2.04 mg/L FEU (<0.60); INR 0.9 (<1.2); Partial Thromboplastin Time 22.1 sec (22.0-30.0); Prothrombin Time 9.3 sec (9.0-12.0)
[2017-11-19 18:08] LABS: Creatine Kinase MB 1.3 ng/mL (0.0-2.4); Troponin I <0.012 ng/mL (0.000-0.034)
[2017-11-19] MEDS ORDERED: RX INFO: IV CONTRAST WAS GIVEN 1 EACH MISC MISCELLANE PRN (19:38)
[2017-11-19] MEDS ORDERED: NITROGLYCERIN SL TABS 0.4 MG TAB SUBLINGUAL PRN ×2 (19:44→19:54)
[2017-11-19] MEDS ORDERED: MORPHINE ORAL SOLN 10 MG/5 ML CUP PO PRN (19:44)
--- NOTE | 2017-11-19 19:44 | ED ---
Chest Pain HPI - General Chief Complaint: Chest Pain Stated Complaint: Chest Pain Time Seen by Provider: 11/19/17 17:25 Source: patient, family Mode of arrival: wheelchair Limitations: no limitations - History of Present Illness Initial Comments: 77 years old female lives with her son and [id number] this in she has a dementia but she complained about chest pain since 9 AM today she was given some nitro without great deal of benefit in the also noticed her blood pressure was elevated today, no accurate review of system is available from the patient, she has a history of dementia as well as legally blind from both eyes - Related Data Home Medications Medication Instructions Recorded Confirmed Fesoterodine Fumarate [Toviaz] 4 mg PO QAM 01/22/15 11/19/17 Pregabalin [Lyrica] 100 mg PO TID 03/22/16 11/19/17 Cholecalciferol (Vitamin D3) 2,000 unit PO DAILY 09/26/17 11/19/17 [Vitamin D3] DULoxetine HCL [Cymbalta] 60 mg PO DAILY 09/26/17 11/19/17 Montelukast [Singulair] 10 mg PO HS 09/26/17 11/19/17 tiZANidine HCL [Zanaflex] 4 mg PO HS 09/26/17 11/19/17 Ferrous Sulfate [Slow Fe] 142 mg PO DAILY 11/19/17 11/19/17 Lisinopril-Hctz 10-12.5 mg 1 tab PO DAILY 11/19/17 11/19/17 [Zestoretic 10-12.5] Previous Rx's Medication Instructions Recorded Aspirin 81 mg PO DAILY chew 09/30/17 Psyllium Husk 100% [Metamucil 6 gm PO DAILY packet 09/30/17 Packet] HYDROcodone/APAP 10-325MG [[place] 1 tab PO Q6H PRN #14 tab 10/02/17 10-325] Isosorbide Mononitrate ER [Imdur] 30 mg PO DAILY tab.er.24h 10/02/17 Nitroglycerin Sl Tabs [Nitrostat] 0.4 mg SUBLINGUAL Q5M PRN tab 10/02/17 Pantoprazole [Protonix] 40 mg PO AC-BRKFST tablet.dr 10/02/17 rOPINIRole HCL [Requip] 4 mg PO TID #1 tab 10/02/17 Allergies Allergy/AdvReac Type Severity Reaction Status Date / Time No Known Allergies Allergy Verified 11/19/17 17:47 Review of Systems ROS Statement: Those systems with pertinent positive or pertinent negative responses have been documented in the HPI. ROS Other: All systems not noted in ROS Statement are negative. EKG Findings - EKG Comments: EKG Findings:: I'm EKG is normal sinus rhythm ventricular rate is 80 MO interval is 160 QRS duration is 66 QT/QTc is 390/459 review of this EKG does not reveal any ST elevation or ST depression Past Medical History Past Medical History: CVA/TIA, Dementia, Hyperlipidemia, Hypertension Additional Past Medical History / Comment(s): Blind. PARKINSON. WHEELCHAIR BOUND/ASSIST.pseudomonas History of Any Multi-Drug Resistant Organisms: None Reported Past Surgical History: Cholecystectomy, Orthopedic Surgery Additional Past Surgical History / Comment(s): ORIF LEFT HIP. CARPAL TUNNEL. Past Anesthesia/Blood Transfusion Reactions: No Reported Reaction Past Psychological History: Depression Smoking Status: Never smoker Past Alcohol Use History: None Reported Past Drug Use History: None Reported - Past Family History Mother Family Medical History: Congestive Heart Failure (CHF) Father Family Medical History: COPD General Exam - General Exam Comments Initial Comments: General: The patient is awake and alert, in no distress, and does not appear acutely ill. Skin: Skin is warm and dry and no rashes or lesions are noted. Eye: SHe did not open her eyes Ears, nose, mouth and throat: There are moist mucous membranes and no oral lesions. Neck: The neck is supple, there is no tenderness or JVD. Cardiovascular: There is a regular rate and rhythm. No murmur, rub or gallop is appreciated. Respiratory: To auscultation bilateral, noticed some crackles at the bases on the right side Gastrointestinal: Soft, non-distended, non-tender abdomen without masses or organomegaly noted. There is no rebound or guarding present. Bowel sounds are unremarkable. Back: There is no tenderness to palpation in the midline. There is no obvious deformity. Musculoskeletal: Normal ROM, no tenderness, There is no pedal edema. There is no calf tenderness or swelling. No cords were appreciated. Neurological: CN II-XII intact, Cranial nerves III through XII are intact. There are no obvious motor or sensory deficits. Coordination appears grossly intact. Speech is normal. Psychiatric: Cooperative, appropriate mood & affect, normal judgment. Limitations: no limitations Course Vital Signs 11/19/17 11/19/17 17:23 19:06 Temperature 97.9 F Pulse Rate 80 77 Respiratory 24 18 Rate Blood Pressure 171/83 166/77 O2 Sat by Pulse 99 100 Oximetry , Patient is reassessed, noticed d-dimer is quite elevated troponin is unremarkable as well as EKG, CBC, comp his metabolic panel and chest x-ray are unremarkable she be admitted for 3 sets of cardiac markers I will go ahead and proceed with the CT chest angiogram and patient be admitted to Dr. Arias's service Disposition Clinical Impression: Chest pain Disposition: ADMITTED IP TO THIS HOSP Condition: Good Referrals: Vadim Gary DO [Primary Care Provider] - 1-2 days
[2017-11-19] MEDS ORDERED: HYDROcodone/APAP 10-325MG 1 EACH TAB PO PRN (19:54)
--- NOTE | 2017-11-19 20:27 | CT ---
EXAMINATION TYPE: CT angio chest DATE OF EXAM: 11/19/2017 COMPARISON: NONE HISTORY: Chest pain CT DLP: 310.7 mGycm. Automated Exposure Control for Dose Reduction was Utilized. CONTRAST: CTA scan of the thorax is performed with IV Contrast, patient injected with 75 mL of Omnipaque 350, p ulmonary embolism protocol. MIP Images are created on CT scanner and reviewed. FINDINGS: LUNGS: There is a consolidation along the right interlobar fissure containing cylindrical bronchiecta sis that elongates on the sagittal image such as on series 11 image 42 and 54 with focal nodular fill ing defect seen on axial series 5 image 64, sagittal series 11 image 45, and coronal series 10 image 58 measuring 8 mm. Peripheral areas of dependent subsegmental atelectasis are seen bilaterally. Linear pleural parenchym al scarring is noted at the lung bases. No sizable pleural effusion or pneumothorax. Solitary lung cy st is seen within the right upper lobe on series 5 image 49 that is subcentimeter. MEDIASTINUM: There is satisfactory enhancement of the pulmonary artery and its branches, there is no CT evidence for pulmonary embolism. There are no greater than 1 cm hilar or mediastinal lymph nodes. Ascending thoracic aorta is within normal limits of size measuring 3.8 cm. Severe three-vessel coron palak artery calcifications are noted. Moderate atherosclerosis of the thoracic aorta is also noted. He art is mildly enlarged and there is a trace pericardial effusion at the anterior-inferior aspect of t he heart. OTHER: Nodular contour of the liver suggests underlying hepatic cirrhosis or hepatocellular disease. Gallbladder is surgically absent. IMPRESSION: 1. No evidence of pulmonary embolus. 2. Focal consolidation along the right interlobar fissure containing bronchiectasis and a central 8mm nodular density. Considerations are for endobronchial neoplasm, mucus plugging, or atypical infectio n such as aspergillosis. Bronchoscopy could be performed. 3. Severe three-vessel coronary artery calcifications, marker for coronary artery disease. 4. Findings suggesting hepatic cirrhosis/hepatocellular disease.
[2017-11-19] MEDS ORDERED: MONTELUKAST 10 MG TAB PO SCH (21:00)
[2017-11-19] MEDS ORDERED: tiZANidine 4 MG TAB PO SCH (21:00)
[2017-11-19] MEDS ORDERED: ATORVASTATIN 40 MG TAB PO SCH (21:00)
[2017-11-19 21:46] VITALS: BMI 30.2
[2017-11-19] MEDS: PREGABALIN 100 MG CAP PO SCH (22:44)
[2017-11-19] MEDS: rOPINIRole HCL 4 MG TABLET PO SCH (22:44)
[2017-11-19 23:47] LABS: Creatine Kinase 98 U/L (30-135)
[2017-11-19 23:59] LABS: Creatine Kinase MB 1.2 ng/mL (0.0-2.4); Troponin I <0.012 ng/mL (0.000-0.034)
[2017-11-20 07:22] VITALS: RESP 16
[2017-11-20] MEDS ORDERED: PANTOPRAZOLE 40 MG TABLET PO SCH (07:30)
[2017-11-20 07:37] LABS: Cholesterol 158 mg/dL (<200); HDL Cholesterol 57 mg/dL (40-60); LDL Cholesterol,Calculated 87 mg/dL (0-99); Triglycerides 71 mg/dL (<150)
[2017-11-20 07:46] LABS: Creatine Kinase 69 U/L (30-135)
[2017-11-20 07:59] LABS: Troponin I <0.012 ng/mL (0.000-0.034)
[2017-11-20] MEDS ORDERED: ASPIRIN 325 MG TAB PO SCH (09:00)
[2017-11-20] MEDS ORDERED: LISINOPRIL-HCTZ 10-12.5 MG 1 EACH TAB PO SCH (09:00)
[2017-11-20] MEDS ORDERED: DULoxetine HCL 60 MG CAPSULE.DR PO SCH (09:00)
[2017-11-20] MEDS ORDERED: OXYBUTYNIN XL 5 MG TAB.ER.24 PO SCH (09:00)
[2017-11-20] MEDS ORDERED: CHOLECALCIFEROL 1,000 UNIT TAB PO SCH (09:00)
[2017-11-20] MEDS ORDERED: ISOSORBIDE MONONITRATE ER 30 MG TAB.ER.24H PO SCH (09:00)
[2017-11-20] MEDS ORDERED: FERROUS SULFATE 325 MG TAB PO SCH (09:00)
[2017-11-20] MEDS ORDERED: PSYLLIUM HUSK 100% 6 GM PACKET PO SCH (09:00)
[2017-11-20] MEDS ORDERED: ASPIRIN 81 MG PO SCH (10:01)
[2017-11-20] MEDS: PREGABALIN 100 MG CAP PO SCH (10:08)
[2017-11-20] MEDS: rOPINIRole HCL 4 MG TABLET PO SCH (10:09)
--- NOTE | 2017-11-20 10:30 | CONS ---
CONSULTATION A 77-year-old demented lady who has complained of chest discomfort yesterday and was brought to the hospital. When I examined her this morning, she was not complaining of any chest discomfort. When she arrived in the emergency room, her blood pressure was 171/83 and 166/77 mmHg. She underwent a CT scan because of an abnormal D-dimer. There was no evidence of pulmonary embolism. The ascending thoracic aorta was normal. Severe coronary calcifications were noted triple-vessel. Chest x-ray showed chronic changes in the lungs. MEDICATION LIST: Medication list is reviewed and is documented in the chart and includes lisinopril hydrochlorothiazide, aspirin, Imdur. ALLERGIES: No known drug allergies. EKG did not show any ST-segment abnormalities. PAST HISTORY: Past history of CVA, dementia, dyslipidemia, hypertension. PHYSICAL EXAMINATION: On examination, she is lying flat in bed. She is a poor historian and has difficulty answering questions. Her blood pressure is 132/65 mmHg and 109/56 mmHg, pulse rate is in the 60s. Head and neck examination is normal. Heart sounds are normal. LUNGS: Clear to auscultation. Extremities are warm. No edema. She is lying flat in bed. She is afebrile. A 12-lead ECG was reviewed and shows sinus rhythm without any ST-segment abnormalities. Her labs are reviewed. Three sets of cardiac enzymes are normal. LDL is 87. Hemoglobin is normal. Renal function is normal. IMPRESSION: 1. Atypical chest discomfort with normal ECG and 3 normal cardiac enzymes. 2. Hypertension and elevated blood pressure on admission. Currently, her blood pressure is in the normal range. SUGGEST: Baby aspirin instead of a full aspirin and watch blood pressure and if blood pressure elevations continue, then lisinopril hydrochlorothiazide dose may be increased to 20/12.5 mg p.o. daily. A 2-D echo and Doppler study will be ordered. MMODL / IJN: [id number] /
[2017-11-20 11:37] VITALS: BP 107/84; PULSE 69; TEMP 97.6
--- NOTE | 2017-11-20 13:24 | HP ---
HISTORY AND PHYSICAL DATE OF ADMISSION: 11/19/2017 PRESENTING COMPLAINT: Chest pain. HISTORY OF PRESENTING COMPLAINT: This is a 77-year-old patient of Dr. Gary. Chronic stable medical conditions include Alzheimer's dementia, hypertension, hyperlipidemia, the patient is blind, Parkinson disease, depression. The patient was brought into the ER by the son complaining of chest pain. The patient is not the best of historian. The patient complained of some pain in the right chest wall below the breast in a particular spot. It is minimally tender there. Pain does not radiate. The patient is very comfortable at rest. Otherwise, there is no left-sided pain and patient does not tell me more about this any more of the history. She is a limited historian, though she is able to follow commands. REVIEW OF SYSTEMS: CONSTITUTIONAL: Tired. HEENT: Decreased hearing. Patient could not see well. RESPIRATORY: None. CARDIOVASCULAR: No precordial pain. GASTROINTESTINAL: None. GENITOURINARY: Some incontinence. DERMATOLOGICAL: None. HEMATOLOGICAL: None. LYMPHATICS: None. PSYCHIATRY: Patient is a poor historian. NEUROLOGICAL: None. PAST MEDICAL HISTORY: Stroke, dementia, hypertension, hyperlipidemia, blind, Parkinson disease, depression. PAST SURGICAL HISTORY: Cholecystectomy, orthopedic surgery, ORIF of left hip, carpal tunnel. SOCIAL HISTORY: Does not smoke or drink alcohol. Apparently patient is wheelchair bound and was living with her son. FAMILY HISTORY: Family history of congestive heart failure. HOME MEDICATIONS: 1. Zestoretic 05/30.5 one tab p.o. daily. 2. Zanaflex 4 mg q.h.s. 3. Metamucil 6 grams p.o. daily. 4. Iron 142 mg p.o. daily. 5. Requip 4 mg p.o. t.i.d. 6. Lyrica 100 mg p.o. t.i.d. 7. Protonix 40 mg with breakfast. 8. Nitrostat 0.4 sublingual q.5 p.r.n. 9. Singulair 10 mg q.h.s. 10.Imdur ER 30 mg p.o. daily. 11.Mobile 10 one tablet q.6 p.r.n. 12.Toviaz 4 mg p.o. daily. 13.Cymbalta 60 mg p.o. daily. 14.Vitamin D3, 2000 units p.o. daily. 15.Aspirin 81 mg p.o. daily. ALLERGIES: None. PHYSICAL EXAMINATION: On examination, temperature 97.3 pulse 68, respiration 16, blood pressure 132/65, pulse ox 93% on room air. GENERAL APPEARANCE: Average build, lying in bed, comfortable. EYES: Decreased vision. Conjunctiva normal. HENT: External appearance of nose and ears normal. Oral cavity normal. Decreased hearing. NECK: JVD unable to assess. Mass not palpable. RESPIRATORY: Effort normal. Lungs are clear. CARDIOVASCULAR: First and second sounds normal. No edema. ABDOMEN: Soft, nontender. Liver and spleen not palpable. LYMPHATIC: No lymph node palpable in neck or axillae. PSYCHIATRY: Patient able answer simple questions. NEUROLOGICAL: Patient has a poor vision. Decreased hearing. No facial asymmetry. Moving all 4 limbs. MUSCULOSKELETAL: Osteoarthritic changes especially in the hands. Also musculoskeletal, very slight tenderness in the anterior axillary line on the right chest wall just below the breast with minimal tenderness. DERMATOLOGICAL: The patient has got evidence of fungal infection below the right breast. INVESTIGATIONS: White count 8.4, hemoglobin 13, platelets 163. Potassium 4.1, BUN 19, creatinine 0.67. Troponin x3 negative. EKG normal sinus rhythm with baseline. CT scan chest was negative for PE. ASSESSMENT: 1. This patient has localized right chest wall pain probably musculoskeletal, denies any left-sided chest pain, has no radiation, no other cardiac symptomatology. 2. Alzheimer's dementia, late onset type. 3. Essential hypertension. 4. 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 5. Parkinson disease, idiopathic. Cardiology was consulted and they recommended to keep a close eye on the patient's blood pressure. Will use some nystatin powder under the breasts. MMODL / IJN: [id number] /
--- NOTE | 2017-11-20 23:42 | DS ---
DISCHARGE SUMMARY DATE OF ADMISSION: 11/19/2017. DATE OF DISCHARGE: 11/20/2017 FINAL DIAGNOSES: 1. Right chest wall pain, probably musculoskeletal. 2. Alzheimer's dementia, late-onset type. 3. Essential hypertension. 4. Patient is blind in both eyes. 5. Parkinson disease, idiopathic. CONSULTATION: Dr. Mayo from Cardiology. HOSPITAL COURSE: This patient with dementia presented with right-sided chest pain, somewhat reproducible. No other cardiac features. Patient's troponins were negative. Patient was negative for PE. DISCHARGE MEDICATIONS: 1. Toviaz 4 mg p.o. daily. 2. Lyrica 100 mg p.o. t.i.d. 3. Vitamin D3 2000 units p.o. daily. 4. Cymbalta 60 mg p.o. daily. 5. Singulair 10 mg at bedtime. 6. Zanaflex 4 mg at bedtime. 7. Aspirin 81 mg p.o. daily. 8. Metamucil 6 grams p.o. daily. 9. Alto 10 one tablet q.6 p.r.n. 10.Imdur ER 30 mg p.o. daily. 11.Nitrostat 0.4 sublingually q.5 p.r.n. 12.Protonix 40 mg with breakfast. 13.Requip 4 mg p.o. t.i.d. 14.Iron 142 mg p.o. daily. 15.Zestoretic 1012.5 one tablet p.o. daily. 16.Nystatin topical b.i.d. under the breast. Follow up with Dr. Gary in 3 days. On examination, lungs are clear. Slight reproducible pain on the right chest wall. MMODL / IJN: [id number] /
--- NOTE | 2017-11-21 11:33 | ECHOF ---
Referral Reason:cp MEASUREMENTS -------- HEIGHT: 157.5 cm WEIGHT: 74.8 kg BP: 132/65 RVIDd: 2.8 cm (< 3.3) IVSd: 1.1 cm (0.6 - 1.1) LVIDd: 4.2 cm (3.9 - 5.3) LVPWd: 1.2 cm (0.6 - 1.1) IVSs: 1.6 cm LVIDs: 3.0 cm LVPWs: 1.5 cm LA Diam: 3.2 cm (2.7 - 3.8) LAESV Index (A-L): 17.47 ml/m Ao Diam: 3.5 cm (2.0 - 3.7) AV Cusp: 1.6 cm (1.5 - 2.6) MV EXCURSION: 12.842 mm (> 18.000) MV EF SLOPE: 25 mm/s (70 - 150) EPSS: 0.1 cm MV E Tyson: 1.30 m/s MV DecT: 385 ms MV A Tyson: 1.64 m/s MV E/A Ratio: 0.79 AV maxP.71 mmHg AV meanP.18 mmHg RAP: 5.00 mmHg RVSP: 34.88 mmHg FINDINGS -------- Sinus rhythm. This was a technically adequate study. The left ventricular size is normal. There is borderline concentric left ventricular hypertrophy. Overall left ventricular systolic function is normal with, an EF between 60 - 65 %. The right ventricle is normal in size. Normal LA size by volume 22+/-6 ml/m2. The right atrium is normal in size. There is mild to moderate aortic valve sclerosis. There is mild aortic stenosis present. Peak/priyanka n gradient across the Aortic Valve is 19.71mmHg / 9.18mmHg. The mitral valve leaflets are mildly thickened. Moderate mitral annular calcification present. Mi ld mitral regurgitation is present. Mild tricuspid regurgitation present. There is mild pulmonary hypertension. The right ventricular systolic pressure, as measured by Doppler, is 34.88mmHg. There is no pulmonic regurgitation present. The aortic root size is normal. Normal inferior vena cava with normal inspiratory collapse consistent with estimated right atrial pre ssure of 5 mmHg. There is no pericardial effusion. CONCLUSIONS -------- 1. Sinus rhythm. 2. This was a technically adequate study. 3. The left ventricular size is normal. 4. There is borderline concentric left ventricular hypertrophy. 5. Overall left ventricular systolic function is normal with, an EF between 60 - 65 %. 6. The right ventricle is normal in size. 7. Normal LA size by volume 22+/-6 ml/m2. 8. The right atrium is normal in size. 9. There is mild to moderate aortic valve sclerosis. 10. There is mild aortic stenosis present. 11. Peak/mean gradient across the Aortic Valve is 19.71mmHg / 9.18mmHg. 12. The mitral valve leaflets are mildly thickened. 13. Moderate mitral annular calcification present. 14. Mild mitral regurgitation is present. 15. Mild tricuspid regurgitation present. 16. There is mild pulmonary hypertension. 17. The right ventricular systolic pressure, as measured by Doppler, is 34.88mmHg. 18. There is no pulmonic regurgitation present. 19. The aortic root size is normal. 20. Normal inferior vena cava with normal inspiratory collapse consistent with estimated right atrial pressure of 5 mmHg. 21. There is no pericardial effusion. SYSTEMS PLANNER: Stephany Guillory RDCS
== END 2017-11-20 13:24 | disposition home or self-care (01) ==
LOC: EC 17:13 → 6SEL 19:44 → 3OBS 11-20 01:35
PROVIDERS: ADMIT Hospitalist; ATTEND Hospitalist
DX: R07.89 Other chest pain (principal); R79.89 Other specified abnormal findings of blood chemistry; I10 Essential (primary) hypertension; I25.10 Atherosclerotic heart disease of native coronary artery without angina pectoris; G30.1 Alzheimer's disease with late onset; F02.80 Dementia in other diseases classified elsewhere, unspecified severity, without behavioral disturbance, psychotic disturbance, mood disturbance, and anxiety; G20 Parkinson's disease; E78.5 Hyperlipidemia, unspecified; F32.9 Major depressive disorder, single episode, unspecified; Z79.82 Long term (current) use of aspirin; Z79.899 Other long term (current) drug therapy; Z99.3 Dependence on wheelchair; H54.8 Legal blindness, as defined in USA; Z90.49 Acquired absence of other specified parts of digestive tract; Z86.73 Personal history of transient ischemic attack (TIA), and cerebral infarction without residual deficits; Z82.49 Family history of ischemic heart disease and other diseases of the circulatory system; Z83.6 Family history of other diseases of the respiratory system
CPT/HCPCS: 99285 ×2; 96374 ×2; 96375 ×2; 96361 ×4; 36415; 93005; 93306; 85379; 80061; 80053; 82550 ×2; 82553 ×2; 83735; 84484 ×2; 85025; 85610; 85730; 71046; 71275; G0378 ×3; Q9967; J2405; J2270

== ENCOUNTER 2018-01-20 16:08 | Inpatient (IN) | payer MEDICARE, OTHER ==
[2018-01-20] MEDS ORDERED: SODIUM CHLORIDE 0.9% 500 ML IV STA (16:55)
--- NOTE | 2018-01-20 17:24 | ED ---
General Adult HPI - General Source: patient, family, RN notes reviewed Mode of arrival: wheelchair Limitations: physical limitation <Yoel Garcia - Last Filed: 01/20/18 19:50> <Juanito Nunez - Last Filed: 01/20/18 19:52> - General Chief complaint: Recheck/Abnormal Lab/Rx Stated complaint: low BP Time Seen by Provider: 01/20/18 16:43 - History of Present Illness Initial comments: Patient 78-year-old female presented to the emergency room today with her son and [id number] who provides majority history. They were at the neurologist for routine checkup for her Parkinson's. States the blood pressure was 80/50 there. They do admit that she is been declining cognition over the last 3 days. States that worried about possible urinary tract infection. States she's had similar symptoms in the past. States approximately 2 months ago was treated for urinary tract infection and sent to rehab. States that currently he is on antibiotic of Levaquin covering a bronchitis infection. He does admit to cough congestion. She denies any other complaints or symptoms. Patient denies any recent fever, chills, shortness of breath, chest pain, back pain, abdominal pain, nausea or vomiting, numbness or tingling, dysuria or hematuria, constipation or diarrhea, headaches or visual changes, or any other complaints. (Yoel Garcia) - Related Data Home Medications Medication Instructions Recorded Confirmed Fesoterodine Fumarate [Toviaz] 4 mg PO QAM 01/22/15 01/20/18 Pregabalin [Lyrica] 100 mg PO TID 03/22/16 01/20/18 Cholecalciferol (Vitamin D3) 2,000 unit PO HS 09/26/17 01/20/18 [Vitamin D3] DULoxetine HCL [Cymbalta] 60 mg PO DAILY 09/26/17 01/20/18 Montelukast [Singulair] 10 mg PO HS 09/26/17 01/20/18 tiZANidine HCL [Zanaflex] 4 mg PO HS 09/26/17 01/20/18 Ferrous Sulfate [Slow Fe] 142 mg PO HS 11/19/17 01/20/18 Lisinopril-Hctz 10-12.5 mg 1 tab PO DAILY 11/19/17 01/20/18 [Zestoretic 10-12.5] Aspirin 81 mg PO HS 01/20/18 01/20/18 Previous Rx's Medication Instructions Recorded Psyllium Husk 100% [Metamucil 6 gm PO DAILY packet 09/30/17 Packet] HYDROcodone/APAP 10-325MG [[place] 1 tab PO Q6H PRN #14 tab 10/02/17 10-325] Isosorbide Mononitrate ER [Imdur] 30 mg PO DAILY tab.er.24h 10/02/17 Nitroglycerin Sl Tabs [Nitrostat] 0.4 mg SUBLINGUAL Q5M PRN tab 10/02/17 Pantoprazole [Protonix] 40 mg PO AC-BRKFST tablet. 10/02/17 rOPINIRole HCL [Requip] 4 mg PO TID #1 tab 10/02/17 Allergies Allergy/AdvReac Type Severity Reaction Status Date / Time No Known Allergies Allergy Verified 01/20/18 16:47 Review of Systems ROS Other: All systems not noted in ROS Statement are negative. <Yoel Garcia - Last Filed: 01/20/18 19:50> ROS Other: All systems not noted in ROS Statement are negative. <Juanito Nunez - Last Filed: 01/20/18 19:52> ROS Statement: Those systems with pertinent positive or pertinent negative responses have been documented in the HPI. Past Medical History Past Medical History: CVA/TIA, Dementia, Hyperlipidemia, Hypertension Additional Past Medical History / Comment(s): Blind. PARKINSON. WHEELCHAIR BOUND/ASSIST.pseudomonas History of Any Multi-Drug Resistant Organisms: None Reported Past Surgical History: Cholecystectomy, Orthopedic Surgery Additional Past Surgical History / Comment(s): ORIF LEFT HIP. CARPAL TUNNEL. Past Anesthesia/Blood Transfusion Reactions: No Reported Reaction Past Psychological History: Depression Smoking Status: Never smoker Past Alcohol Use History: None Reported Past Drug Use History: None Reported - Past Family History Mother Family Medical History: Congestive Heart Failure (CHF) Father Family Medical History: COPD <Yoel Garcia - Last Filed: 01/20/18 19:50> General Exam Limitations: physical limitation <Yoel Garcia - Last Filed: 01/20/18 19:50> <Juanito Nunez - Last Filed: 01/20/18 19:52> - General Exam Comments Initial Comments: General: The patient is awake and alert, in no distress, and does not appear acutely ill. Eye: Pupils are equal, round and reactive to light, extra-ocular movements are intact. No nystagmus. There is normal conjunctiva bilaterally. No signs of icterus. Ears, nose, mouth and throat: There are moist mucous membranes and no oral lesions. Neck: The neck is supple, there is no tenderness or JVD. Cardiovascular: There is a regular rate and rhythm. No murmur, rub or gallop is appreciated. Respiratory: Lungs are clear to auscultation, respirations are non-labored, breath sounds are equal. No wheezes, stridor, rales, or rhonchi. Gastrointestinal: Soft, non-distended, non-tender abdomen without masses or organomegaly noted. There is no rebound or guarding present. No CVA tenderness. Musculoskeletal: Normal ROM, no tenderness. Strength 5/5. Sensation intact. Pulses equal bilaterally 2+. Neurological: A&O x 3. CN II-XII intact, There are no obvious motor or sensory deficits. Coordination appears grossly intact. Speech is normal. Skin: Skin is warm and dry and no rashes or lesions are noted. Psychiatric: Cooperative, appropriate mood & affect, normal judgment. (Yoel Garcia) Vital Signs 01/20/18 01/20/18 01/20/18 16:20 17:30 18:30 Temperature 98.0 F Pulse Rate 87 64 72 Respiratory 18 20 20 Rate Blood Pressure 110/55 110/53 109/65 O2 Sat by Pulse 95 96 Oximetry 01/20/18 01/20/18 18:55 19:30 Temperature 97.8 F Pulse Rate 95 78 Respiratory 20 15 Rate Blood Pressure 139/77 137/63 O2 Sat by Pulse 96 98 Oximetry EKG Findings - EKG Comments: EKG Findings:: EKG performed at 17: Shows normal sinus rhythm at 81 bpm. CO interval 170. QRS 76. QT/QTC 418/485. No acute changes. <Yoel Garcia - Last Filed: 01/20/18 19:50> Medical Decision Making - Lab Data Result diagrams: 01/20/18 17:15 01/20/18 17:15 <Yoel Garcia - Last Filed: 01/20/18 19:50> - Lab Data Result diagrams: 01/20/18 17:15 01/20/18 17:15 <Juanito Nunez - Last Filed: 01/20/18 19:52> - Medical Decision Making Patient reexamined at this time shows no signs of distress. She states she has he had negative. Patient's chest x-ray showed no acute changes. Her labs are been reviewed. Positive nitrates in the urine. Has been on Levaquin for a bronchitis infection. Family member states she's been off and on it for some time now. They shouldn't has had increased states her confusion at times over the last 3 days. Will be admitted to the hospital for outpatient treatment failure for UTI. Will be given dose of Rocephin here in the emergency room. Case discussed with attending physician . ([place] MariesYoel) The patient is seen and examined. All diagnostics were reviewed. The patient will require admission to the hospital for a urinary tract infection associated with some confusion and weakness. It appears that she has failed outpatient treatment. The case will be discussed with internal medicine shortly. (Juanito Nunez) - Lab Data Lab Results 01/20/18 01/20/18 01/20/18 Range/Units 17:15 17:15 17:15 WBC 6.9 (3.8-10.6) k/uL RBC 4.34 (3.80-5.40) m/uL Hgb 12.6 (11.4-16.0) gm/dL Hct 38.3 (34.0-46.0) % MCV 88.2 (80.0-100.0) fL MCH 28.9 (25.0-35.0) pg MCHC 32.8 (31.0-37.0) g/dL RDW 15.1 (11.5-15.5) % Plt Count 204 (150-450) k/uL Neutrophils % 50 % Lymphocytes % 34 % Monocytes % 7 % Eosinophils % 6 % Basophils % 1 % Neutrophils # 3.5 (1.3-7.7) k/uL Lymphocytes # 2.3 (1.0-4.8) k/uL Monocytes # 0.5 (0-1.0) k/uL Eosinophils # 0.4 (0-0.7) k/uL Basophils # 0.0 (0-0.2) k/uL PT (9.0-12.0) sec INR (<1.2) APTT (22.0-30.0) sec Sodium 145 (137-145) mmol/L Potassium 3.6 (3.5-5.1) mmol/L Chloride 102 (98-107) mmol/L Carbon Dioxide 31 H (22-30) mmol/L Anion Gap 12 mmol/L BUN 22 H (7-17) mg/dL Creatinine 0.90 (0.52-1.04) mg/dL Est GFR (CKD-EPI)AfAm 70 (>60 ml/min/1.73 sqM) Est GFR (CKD-EPI)NonAf 61 (>60 ml/min/1.73 sqM) Glucose 148 H (74-99) mg/dL Calcium 9.2 (8.4-10.2) mg/dL Total Bilirubin 0.5 (0.2-1.3) mg/dL AST 22 (14-36) U/L ALT 24 (9-52) U/L Alkaline Phosphatase 70 (38-126) U/L Total Creatine Kinase 57 (30-135) U/L CK-MB (CK-2) 0.6 (0.0-2.4) ng/mL CK-MB (CK-2) Rel Index 1.1 Troponin I <0.012 (0.000-0.034) ng/mL Total Protein 6.1 L (6.3-8.2) g/dL Albumin 3.4 L (3.5-5.0) g/dL Urine Color Urine Appearance (Clear) Urine pH (5.0-8.0) Ur Specific [place] (1.001-1.035) Urine Protein (Negative) Urine Glucose (UA) (Negative) Urine Ketones (Negative) Urine Blood (Negative) Urine Nitrite (Negative) Urine Bilirubin (Negative) Urine Urobilinogen (<2.0) mg/dL Ur Leukocyte Esterase (Negative) Urine WBC (0-5) /hpf Urine Bacteria (None) /hpf Hyaline Casts (0-2) /lpf Urine Mucus (None) /hpf 01/20/18 01/20/18 Range/Units 17:15 17:30 WBC (3.8-10.6) k/uL RBC (3.80-5.40) m/uL Hgb (11.4-16.0) gm/dL Hct (34.0-46.0) % MCV (80.0-100.0) fL MCH (25.0-35.0) pg MCHC (31.0-37.0) g/dL RDW (11.5-15.5) % Plt Count (150-450) k/uL Neutrophils % % Lymphocytes % % Monocytes % % Eosinophils % % Basophils % % Neutrophils # (1.3-7.7) k/uL Lymphocytes # (1.0-4.8) k/uL Monocytes # (0-1.0) k/uL Eosinophils # (0-0.7) k/uL Basophils # (0-0.2) k/uL PT 9.8 (9.0-12.0) sec INR 1.0 (<1.2) APTT 23.7 (22.0-30.0) sec Sodium (137-145) mmol/L Potassium (3.5-5.1) mmol/L Chloride (98-107) mmol/L Carbon Dioxide (22-30) mmol/L Anion Gap mmol/L BUN (7-17) mg/dL Creatinine (0.52-1.04) mg/dL Est GFR (CKD-EPI)AfAm (>60 ml/min/1.73 sqM) Est GFR (CKD-EPI)NonAf (>60 ml/min/1.73 sqM) Glucose (74-99) mg/dL Calcium (8.4-10.2) mg/dL Total Bilirubin (0.2-1.3) mg/dL AST (14-36) U/L ALT (9-52) U/L Alkaline Phosphatase (38-126) U/L Total Creatine Kinase (30-135) U/L CK-MB (CK-2) (0.0-2.4) ng/mL CK-MB (CK-2) Rel Index Troponin I (0.000-0.034) ng/mL Total Protein (6.3-8.2) g/dL Albumin (3.5-5.0) g/dL Urine Color Yellow Urine Appearance Clear (Clear) Urine pH 7.0 (5.0-8.0) Ur Specific [place] 1.010 (1.001-1.035) Urine Protein Negative (Negative) Urine Glucose (UA) Negative (Negative) Urine Ketones Negative (Negative) Urine Blood Negative (Negative) Urine Nitrite Positive H (Negative) Urine Bilirubin Negative (Negative) Urine Urobilinogen <2.0 (<2.0) mg/dL Ur Leukocyte Esterase Trace H (Negative) Urine WBC 3 (0-5) /hpf Urine Bacteria Rare H (None) /hpf Hyaline Casts 4 H (0-2) /lpf Urine Mucus Rare H (None) /hpf Disposition Is patient prescribed a controlled substance at d/c from ED?: No Time of Disposition: 19:46 <Yoel Garcia - Last Filed: 01/20/18 19:50> <Juanito Nunez - Last Filed: 01/20/18 19:52> Clinical Impression: UTI (urinary tract infection), Failure of outpatient treatment, Change in mental status Disposition: ADMITTED IP TO THIS HOSP Condition: Stable Referrals: Vadim Gary DO [Primary Care Provider] - 1-2 days
[2018-01-20 17:31] LABS: Basophils % (A) 1 %; Eosinophils # (A) 0.4 k/uL (0-0.7); Eosinophils % (A) 6 %; HCT 38.3 % (34.0-46.0); HGB 12.6 gm/dL (11.4-16.0); Lymphocytes # (A) 2.3 k/uL (1.0-4.8); Lymphocytes % (A) 34 %; MCH 28.9 pg (25.0-35.0); MCHC 32.8 g/dL (31.0-37.0); MCV 88.2 fL (80.0-100.0); Mean Platelet Volume 7.4; Monocytes # (A) 0.5 k/uL (0-1.0); Monocytes % (A) 7 %; Neutrophils # (A) 3.5 k/uL (1.3-7.7); Neutrophils % (A) 50 %; Platelet Count 204 k/uL (150-450); RBC 4.34 m/uL (3.80-5.40); RDW 15.1 % (11.5-15.5); WBC 6.9 k/uL (3.8-10.6)
[2018-01-20 17:39] LABS: Albumin 3.4 g/dL (3.5-5.0); Calcium 9.2 mg/dL (8.4-10.2); Potassium 3.6 mmol/L (3.5-5.1); Total Bilirubin 0.5 mg/dL (0.2-1.3); Total Protein 6.1 g/dL (6.3-8.2)
[2018-01-20 17:45] LABS: Partial Thromboplastin Time 23.7 sec (22.0-30.0); Prothrombin Time 9.8 sec (9.0-12.0)
[2018-01-20 17:46] LABS: Appearance,Urine Clear (Clear); Bacteria,Urine Rare /hpf; Bilirubin,Urine Negative (Negative); Blood,Urine Negative (Negative); Color,Urine Yellow; Glucose,Urine (UA) Negative (Negative); Hyaline Casts,Urine 4 /lpf (0-2); Ketones,Urine Negative (Negative); Leukocyte Esterase,Urine Trace (Negative); Mucus,Urine Rare /hpf; Nitrite,Urine Positive (Negative); Protein,Urine Negative (Negative); Urobilinogen,Urine <2.0 mg/dL (<2.0); WBC,Urine 3 /hpf (0-5)
[2018-01-20 17:57] LABS: Creatine Kinase 57 U/L (30-135)
[2018-01-20 18:09] LABS: Creatine Kinase MB 0.6 ng/mL (0.0-2.4); Troponin I <0.012 ng/mL (0.000-0.034)
--- NOTE | 2018-01-20 18:09 | CT ---
EXAMINATION: CT brain wo con DATE AND TIME: 01/20/2018 5:52 PM ORDERING PROVIDER: Yoel Garcia CLINICAL INDICATION: Pain hypotension and weakness TECHNIQUE: Standard departmental protocol. DLP 1925.3 mGy-cm. COMPARISON: 08/13/2013 DESCRIPTION: The calvarium is intact. There is no intracranial hemorrhage. The re is no mass or mass effect. Diffuse bilateral friedman radiata and centrum semiovale low attenuation, but there is no definite new attenuation defect. Remainder of the intra-axial and extra-axial compar tment examination is unremarkable. The paranasal sinuses, middle ear cavities, and mastoid sinus air cells are clear. The orbits are intact. IMPRESSION: NO DEFINITE ACUTE PROCESS.
--- NOTE | 2018-01-20 19:07 | XR ---
EXAMINATION: XR chest 2V DATE AND TIME: 01/20/2018 5:52 PM ORDERING PROVIDER: Yoel Garcia CLINICAL INDICATION: cough TECHNIQUE: PA and lateral COMPARISON: 11/19/2017 DESCRIPTION: There is moderate silhouetting of the pulmonary vasculature bilaterally by a fine reticular pattern o f increased density reaching the periphery and septal lines No focal lung findings. The pleural spaces are negative. The cardiac silhouette is mildly enlarged, stable. The skeletal structures are intact without focal findings. The soft tissues are unremarkable. IMPRESSION: Moderate interstitial phase pulmonary edema, presumably cardiogenic etiology
[2018-01-20] MEDS ORDERED: cefTRIAXone IN SWFI 1,000 MG/10 ML SYRINGE IVP STA (19:30)
[2018-01-20] MEDS ORDERED: ONDANSETRON 4 MG/2 ML VIAL IVP PRN (19:46)
[2018-01-20] MEDS ORDERED: NALOXONE 0.4 MG/ML 1 ML VIAL IV PRN (19:46)
[2018-01-20] MEDS ORDERED: SODIUM CHLORIDE 0.9% 1,000 ML IV ONE (19:46)
[2018-01-20] MEDS ORDERED: ACETAMINOPHEN TAB 325 MG TAB PO PRN (19:46)
[2018-01-20] MEDS: MONTELUKAST 10 MG TAB PO SCH (21:36)
[2018-01-20] MEDS: tiZANidine 4 MG TAB PO SCH (21:36)
[2018-01-20] MEDS: rOPINIRole HCL 4 MG TABLET PO SCH (21:36)
[2018-01-20] MEDS: PREGABALIN 100 MG CAP PO SCH (21:36)
[2018-01-21 08:03] LABS: Basophils % (A) 1 %; Eosinophils # (A) 0.3 k/uL (0-0.7); Eosinophils % (A) 5 %; HCT 37.5 % (34.0-46.0); Lymphocytes # (A) 2.4 k/uL (1.0-4.8); Lymphocytes % (A) 40 %; MCH 28.9 pg (25.0-35.0); MCHC 32.1 g/dL (31.0-37.0); MCV 90.1 fL (80.0-100.0); Mean Platelet Volume 7.4; Monocytes # (A) 0.4 k/uL (0-1.0); Monocytes % (A) 7 %; Neutrophils # (A) 2.6 k/uL (1.3-7.7); Neutrophils % (A) 44 %; Platelet Count 169 k/uL (150-450); RBC 4.16 m/uL (3.80-5.40); RDW 15.2 % (11.5-15.5); WBC 5.9 k/uL (3.8-10.6)
[2018-01-21 08:28] LABS: ALT 24 U/L (9-52); AST 20 U/L (14-36); Alkaline Phosphatase 60 U/L (38-126); Anion Gap 10 mmol/L; Blood Urea Nitrogen 20 mg/dL (7-17); Calcium 8.7 mg/dL (8.4-10.2); Carbon Dioxide 30 mmol/L (22-30); Chloride 107 mmol/L (98-107); Glucose 87 mg/dL (74-99); Potassium 3.3 mmol/L (3.5-5.1); Sodium 147 mmol/L (137-145); Total Bilirubin 0.5 mg/dL (0.2-1.3); Total Protein 5.7 g/dL (6.3-8.2)
[2018-01-21] MEDS ORDERED: LISINOPRIL-HCTZ 10-12.5 MG 1 EACH TAB PO SCH (09:00)
[2018-01-21] MEDS: PANTOPRAZOLE 40 MG TABLET PO SCH (10:19)
[2018-01-21] MEDS: DULoxetine HCL 60 MG CAPSULE.DR PO SCH (10:20)
[2018-01-21] MEDS: PREGABALIN 100 MG CAP PO SCH ×3 (10:20→21:56)
[2018-01-21] MEDS: cefTRIAXone IN SWFI 1,000 MG/10 ML SYRINGE IVP SCH (10:20)
[2018-01-21] MEDS: ISOSORBIDE MONONITRATE ER 30 MG TAB.ER.24H PO SCH (10:20)
[2018-01-21] MEDS: PSYLLIUM HUSK 100% 6 GM PACKET PO SCH (10:21)
[2018-01-21] MEDS: rOPINIRole HCL 4 MG TABLET PO SCH ×3 (10:23→21:52)
[2018-01-21] MEDS ORDERED: Potassium Replacement Protocol 1 EACH MISC MISCELLANE PRN (12:07)
[2018-01-21] MEDS ORDERED: IPRATROPIUM-ALBUTEROL 3 ML NEB INHALATION PRN (12:36)
[2018-01-21] MEDS: LACTATED RINGERS 1,000 ML IV SCH ×2 (13:09→22:01)
[2018-01-21] MEDS: POTASSIUM CHLORIDE ER 20 MEQ TAB.ER PO SCH ×2 (13:11→14:53)
--- NOTE | 2018-01-21 14:54 | P.CNPUL ---
History of Present Illness Consult date: 01/21/18 Requesting physician: Gui Mcdonald Reason for consult: dyspnea, COPD, other Chief complaint: Hypotension, UTI, dyspnea History of present illness: Mrs. Quintanilla is a 78-year-old white female patient of Dr. Gary, who presented to the emergency department on 01/20/2018 at 1608 with her son and daughter-in- law for investigation of hypotension and a concern of a possible urinary tract infection. Patient was at a neurologist for a routine checkup for her Parkinson 's, and she was noted to have a blood pressure of 80/50. In addition patient had been more lethargic and weak for 3 days prior to the presentation. Patient was suspected to have a urinary tract infection. She had similar symptoms in the past. Patient was hospitalized 2 months ago for a UTI and was subsequently sent to a rehabilitation center. Patient also has an underlying history of COPD , with FEV1 of 61% of predicted, consistent with moderately severe COPD, GOLD stage II. Patient had a bronchoscopy in 2015, and bronch washings were positive for pseudomonas aeruginosa. Patient has a chronic pseudomonas conization and bronchitis and she was placed on Levaquin 250 mg on Saturday, Saturday and Saturday schedule for prophylaxis, however she was taken off the Levaquin in October due to GI distress. On 10/29/2017 she was seen in the pulmonary office with complaints of chest congestion, coughing, wheezing and shortness of breath, and at that time she was treated with Depo-Medrol 80 mg IM , she was given a prednisone burst and taper, and Levaquin 500 milligrams daily for 10 days. Chest x-ray completed in the emergency room showed moderate interstitial phase pulmonary edema. Patient was given 1 L bolus of 0.9 normal saline in the emergency department for hypotension, and currently her blood pressures are 101/62 with a mean of 75, patient has been afebrile while inpatient, she denies any fever or chills, she is currently on room air with a pulse ox of 97%. She is somnolent, but easily arousable. Patient has history of macular degeneration, and is legally blind. Other history includes Parkinson 's disease, dementia, hypercholesterolemia, depression, hypertension, CVA/TIA, gait dysfunction, and the patient is wheelchair-bound. Lab work showed WBC of 6.9, sodium of 145, potassium is 3.6, CO2 of 31, BUN of 22, creatinine is 0.90, troponins and cardiac enzymes were negative 1, urinalysis was positive for nitrites, and trace leukocytes, as well as bacteria and mucus. Urine culture was sent and is pending at this time. Previously in October urine culture was positive for Klebsiella pneumoniae with resistance only to ampicillin. Plasma lactic acid was 1.2 on today's labs. Patient was empirically started on Rocephin and admitted for further management. On today's exam patient is complaining of being mildly short of breath, and some chest tightness, and the chest discomfort is reproducible. Lung sounds are coarse rales bilaterally, her cough is nonproductive. No wheezes noted. And were consulted in regards to the patient's history of recurrent pseudomonal lung infection. Review of Systems All systems: negative Constitutional: Denies chills, Denies fever Eyes: bilateral as per HPI, bilateral loss of vision (Patient is legally blind, history of macular degeneration), denies pain Ears, nose, mouth and throat: Denies headache, Denies sore throat Cardiovascular: Denies chest pain, Denies shortness of breath Respiratory: Reports dyspnea, Reports pain on inspiration, Reports respiratory infections, Denies cough Gastrointestinal: Denies abdominal pain, Denies diarrhea, Denies nausea, Denies vomiting Genitourinary: Denies dysuria, Denies hematuria Musculoskeletal: Denies myalgias Integumentary: Denies pruritus, Denies rash Neurological: Reports gait dysfunction, Reports loss of vision, Reports weakness , Denies numbness Psychiatric: Denies anxiety, Denies depression Endocrine: Denies fatigue, Denies weight change Past Medical History Past Medical History: CVA/TIA, Dementia, Hyperlipidemia, Hypertension, Respiratory Disorder Additional Past Medical History / Comment(s): Blind. PARKINSON. WHEELCHAIR BOUND/ASSIST.pseudomonas History of Any Multi-Drug Resistant Organisms: None Reported Past Surgical History: Cholecystectomy, Orthopedic Surgery Additional Past Surgical History / Comment(s): ORIF LEFT HIP. CARPAL TUNNEL. Past Anesthesia/Blood Transfusion Reactions: No Reported Reaction Past Psychological History: Depression Additional Psychological History / Comment(s): DEMENTIA. Smoking Status: Never smoker Past Alcohol Use History: None Reported Past Drug Use History: None Reported - Past Family History Mother Family Medical History: Congestive Heart Failure (CHF) Father Family Medical History: COPD Medications and Allergies Home Medications Medication Instructions Recorded Confirmed Type Fesoterodine Fumarate [Toviaz] 4 mg PO QAM 01/22/15 01/20/18 History Pregabalin [Lyrica] 100 mg PO TID 03/22/16 01/20/18 History Cholecalciferol (Vitamin D3) 2,000 unit PO HS 09/26/17 01/20/18 History [Vitamin D3] DULoxetine HCL [Cymbalta] 60 mg PO DAILY 09/26/17 01/20/18 History Montelukast [Singulair] 10 mg PO HS 09/26/17 01/20/18 History tiZANidine HCL [Zanaflex] 4 mg PO HS 09/26/17 01/20/18 History Psyllium Husk 100% [Metamucil 6 gm PO DAILY packet 09/30/17 01/20/18 Rx Packet] HYDROcodone/APAP 10-325MG [[place] 1 tab PO Q6H PRN #14 tab 10/02/17 01/20/18 Rx 10-325] Isosorbide Mononitrate ER [Imdur] 30 mg PO DAILY tab.er.24h 10/02/17 01/20/18 Rx Nitroglycerin Sl Tabs [Nitrostat] 0.4 mg SUBLINGUAL Q5M PRN tab 10/02/17 Rx Pantoprazole [Protonix] 40 mg PO AC-BRKFST tablet. 10/02/17 01/20/18 Rx rOPINIRole HCL [Requip] 4 mg PO TID #1 tab 10/02/17 01/20/18 Rx Ferrous Sulfate [Slow Fe] 142 mg PO HS 11/19/17 01/20/18 History Lisinopril-Hctz 10-12.5 mg 1 tab PO DAILY 11/19/17 01/20/18 History [Zestoretic 10-12.5] Aspirin 81 mg PO HS 01/20/18 01/20/18 History Allergies Allergy/AdvReac Type Severity Reaction Status Date / Time No Known Allergies Allergy Verified 01/20/18 16:47 Physical Exam Vitals: Vital Signs Temp Pulse Pulse Resp BP BP Pulse Ox 01/21/18 06:00 97.8 F 68 16 101/62 97 01/20/18 23:30 115/68 01/20/18 23:00 98.0 F 68 16 92 L 01/20/18 22:00 16 01/20/18 19:30 97.8 F 78 15 137/63 98 01/20/18 18:55 95 20 139/77 96 01/20/18 18:30 72 20 109/65 96 01/20/18 17:30 64 20 110/53 95 01/20/18 16:20 98.0 F 87 18 110/55 Intake and Output 01/20/18 01/21/18 01/21/18 22:59 06:59 14:59 Other: Voiding Method Diaper # Voids 0 1 # Bowel Movements 1 Weight 74.843 kg Elderly, somnolent, 78-year-old white female resting in bed, easily arousable to verbal stimulation, oriented to person, but not to place or the time - Constitutional General appearance: no acute distress - EENT Pupils are equal, 4-5 mm, sluggishly reactive, patient has an underlying history of macular degeneration, and is legally blind Eyes: EOMI ENT: NA/AT - Neck Neck: no lymphadenopathy Carotids: bilateral: upstroke normal Thyroid: bilateral: normal size - Respiratory Respiratory: bilateral: diminished, rales (Coarse rales, over posterior bilateral lower bases) - Cardiovascular Rhythm: regular Heart sounds: normal: S1, S2 ankle Peripheral Edema: absent: None leg Peripheral Edema: absent: None foot Peripheral Edema: absent: None dorsalis pedis Peripheral Pulses: bilateral: Normal radial pulse Peripheral Pulses: bilateral: Normal - Gastrointestinal General gastrointestinal: no organomegaly, soft, no tenderness - Integumentary Integumentary: normal turgor - Neurologic Neurologic: CNII-XII intact - Musculoskeletal Musculoskeletal: strength equal bilaterally - Psychiatric Alert, oriented times one, to person, disoriented to place and the time Psychiatric: appropriate affect Results - Laboratory Findings CBC and BMP: 01/21/18 07:34 01/21/18 07:34 PT/INR, D-dimer PT 9.8 sec (9.0-12.0) 01/20/18 17:15 INR 1.0 (<1.2) 01/20/18 17:15 Abnormal lab findings: Abnormal Labs 01/20/18 01/20/18 01/21/18 17:15 17:30 07:34 Sodium 147 H Potassium 3.3 L Carbon Dioxide 31 H BUN 22 H 20 H Glucose 148 H Total Protein 6.1 L 5.7 L Albumin 3.4 L 3.0 L Urine Nitrite Positive H Ur Leukocyte Esterase Trace H Urine Bacteria Rare H Hyaline Casts 4 H Urine Mucus Rare H - Diagnostic Findings Chest x-ray: report reviewed, image reviewed Additional studies: Brain CT results, and EKG reviewed Assessment and Plan Plan: Assessment: #1. Acute urinary tract infection and sepsis #2. Hypotension, acute mental status change, weakness secondary to the above #3. History of recurrent pseudomonal lung infections, and the patient is known to have pseudomonal colonization, and was previously on a maintenance Levaquin 250 mg on Saturday, Saturday, Saturday schedule for prophylaxis #4. Mild dyspnea, possibly related to sepsis, and mild fluid overload. No significant chest congestion noted this admission #5. Right-sided reproducible chest discomfort, troponins and cardiac enzymes were negative 1, echocardiogram from 11/20/2017 showed a preserved left ventricular systolic function of 60-65%. CT angios from 4 09/21/2017 showed no evidence of PE, but focal consolidation along the right interlobar fissure containing bronchiectasis and central 8 mm nodular density, with considerations for endobronchial neoplasm, mucus plugging or atypical infection. There was also severe three-vessel coronary artery calcification noted. #6. Recent urinary tract infection with urine culture positive for Klebsiella pneumoniae on 10/21/2017 #7. Dementia #8. Parkinson's #9. Hypertension, hyperlipidemia #10. CVA/TIA #11. Macular degeneration, and patient is legally blind in both eyes #12. Chronic cough #13. Gait dysfunction, and the patient is wheelchair-bound Plan: Continue current antibiotic coverage, will await the final cultures of blood, and urine. We'll start the patient on DuoNeb 3 times a day and when necessary. No wheezing or significant chest congestion noted on this admission. We'll continue to follow I performed a history & physical examination of the patient and discussed their management with my nurse practitioner, Irma Samayoa. I reviewed the nurse practitioner's note and agree with the documented findings and plan of care. Lung sounds are positive for bibasilar crackles. The findings and the impression was discussed with the patient. I attest to the documentation by the nurse practitioner. Time with Patient: Greater than 30
[2018-01-21] MEDS ORDERED: NITROGLYCERIN SL TABS 0.4 MG TAB SUBLINGUAL PRN (16:49)
--- NOTE | 2018-01-21 17:57 | HP ---
HISTORY AND PHYSICAL DATE OF ADMISSION: 01/20/2018 DATE OF SERVICE: 01/21/2018 PRESENTING COMPLAINT: Weak, tired, low blood pressure. HISTORY OF PRESENTING COMPLAINT: This is an 78-year-old patient who follows with Dr. Gary. Chronic stable medical conditions include Alzheimer's dementia, hypertension, hyperlipidemia, poor vision, Parkinson disease, depression. Patient lives with her son and [id number]. Because of dementia, patient can only answer some very simple questions. Patient had gone to Dr. Lopez's office for a regular checkup, where she was found to be hypotensive, blood pressure down to 80/50. Patient had been feeling weak and tired; decreased oral intake. She was found to have a UTI, started on IV fluids and antibiotics. The patient herself does not give too much of a history; like I said again, patient's history is obtained from the family. REVIEW OF SYSTEMS: CONSTITUTIONAL: Tired. HEENT: Decreased hearing. Poor vision. RESPIRATORY: None. CARDIOVASCULAR: None. GASTROINTESTINAL: None. GENITOURINARY: Incontinence. DERMATOLOGICAL: None. HEMATOLOGICAL: None. LYMPHATICS: None. PSYCHIATRY: Forgetful. NEUROLOGICAL: Generalized weakness. PAST MEDICAL HISTORY: 1. Stroke. 2. Dementia. 3. Hypertension. 4. Hyperlipidemia. 5. Blind. 6. Parkinson disease. 7. Depression. PAST SURGICAL HISTORY: 1. Cholecystectomy. 2. Orthopedic surgery. 3. ORIF of the left hip. 4. Carpal tunnel. SOCIAL HISTORY: Does not smoke or drink alcohol. Patient is non-ambulatory. Lives with her son. FAMILY HISTORY: Congestive heart failure. HOME MEDICATIONS: 1. Zanaflex 4 mg at bedtime. 2. Nitrostat 0.4 sublingually q.5 p.r.n. 3. Singulair 10 mg at bedtime. 4. [place] 10 one tablet q.6 p.r.n. 5. Iron 142 mg p.o. at bedtime. 6. Vitamin D3 2000 units p.o. at bedtime. 7. Aspirin 81 mg at bedtime. 8. Metamucil 6 grams p.o. daily. 9. Requip 4 mg p.o. t.i.d. 10.Lyrica 100 mg t.i.d. 11.Protonix 40 mg with breakfast. 12.Zestoretic 05/30.5 one tablet p.o. daily. 13.Imdur ER 30 mg p.o. daily. 14.Toviaz 4 mg p.o. daily. 15.Cymbalta 60 mg p.o. daily. ALLERGIES: NONE. PHYSICAL EXAMINATION: VITAL SIGNS ON PRESENTATION: Temperature 98, pulse 87, respiration 18, blood pressure 110/55, pulse ox 95% on room air. GENERAL APPEARANCE: Average build. BMI 32.2. Lying in bed, tired-appearing. EYES: Pupils equal. Conjunctivae normal. HEENT: External appearance of nose and ears normal. Oral cavity dry. NECK: JVD unable to assess. Mass not palpable. RESPIRATORY: Effort normal. LUNGS: Diminished breath sounds. Fair air entry. CARDIOVASCULAR: First and second sounds normal. No edema. ABDOMEN: Soft, nontender. Liver and spleen not palpable. LYMPHATIC: No lymph node palpable in neck or axillae. PSYCHIATRY: Patient can answer some simple questions; like she knows her name. NEUROLOGICAL: Pupils equal. No facial asymmetry. Does move her limbs. MUSCULOSKELETAL: Some evidence of osteoarthritis. INVESTIGATIONS: White count 6.9, hemoglobin 12.6, potassium 3.6, BUN 22, creatinine 0.9. UA positive for nitrite, leukocyte esterase. ASSESSMENT: 1. Hypotension, probably from decreased oral intake and urinary tract infection. 2. Acute urinary tract infection, present on admission. 3. Dehydration. 4. Major cognitive impairment from advanced Alzheimer's dementia. 5. Hypernatremia; sodium today of 147. 6. Medical debility. Patient is wheelchair-bound. 7. Mild protein-calorie malnutrition from decreased oral intake and hypoalbuminemia of 3.0. 8. Patient is blind in both eyes. 9. Parkinson disease. PLAN: Care was discussed with the son and [id number]. Patient has been put on antibiotics and IV fluids. Zestoretic will be held. Home medications are resumed. Also getting IV fluids. Given her age, patient's prognosis is guarded. MMODL / IJN: [id number] /
[2018-01-21] MEDS: IPRATROPIUM-ALBUTEROL 3 ML NEB INHALATION SCH (20:17)
[2018-01-21] MEDS: tiZANidine 4 MG TAB PO SCH (21:52)
[2018-01-21] MEDS: MONTELUKAST 10 MG TAB PO SCH (21:52)
[2018-01-21] MEDS: HYDROcodone/APAP 10-325MG 1 EACH TAB PO PRN (21:56)
[2018-01-21] MEDS: ASPIRIN 81 MG PO SCH (22:01)
[2018-01-22] MEDS: LACTATED RINGERS 1,000 ML IV SCH ×2 (06:09→17:38)
[2018-01-22] MEDS: IPRATROPIUM-ALBUTEROL 3 ML NEB INHALATION SCH ×3 (08:54→19:39)
[2018-01-22] MEDS: cefTRIAXone IN SWFI 1,000 MG/10 ML SYRINGE IVP SCH (08:55)
[2018-01-22] MEDS: DULoxetine HCL 60 MG CAPSULE.DR PO SCH (08:58)
[2018-01-22] MEDS: PANTOPRAZOLE 40 MG TABLET PO SCH (08:58)
[2018-01-22] MEDS: OXYBUTYNIN XL 5 MG TAB.ER.24 PO SCH (08:58)
[2018-01-22] MEDS: ISOSORBIDE MONONITRATE ER 30 MG TAB.ER.24H PO SCH (08:58)
[2018-01-22] MEDS: rOPINIRole HCL 4 MG TABLET PO SCH ×3 (08:59→21:37)
[2018-01-22] MEDS: PSYLLIUM HUSK 100% 6 GM PACKET PO SCH (09:02)
[2018-01-22] MEDS: PREGABALIN 100 MG CAP PO SCH ×3 (09:02→21:37)
[2018-01-22 10:56] LABS: Basophils # (A) 0.1 k/uL (0-0.2); Basophils % (A) 1 %; Eosinophils # (A) 0.4 k/uL (0-0.7); Eosinophils % (A) 5 %; HCT 37.9 % (34.0-46.0); HGB 12.4 gm/dL (11.4-16.0); Lymphocytes # (A) 3.2 k/uL (1.0-4.8); Lymphocytes % (A) 41 %; MCH 29.2 pg (25.0-35.0); MCHC 32.6 g/dL (31.0-37.0); MCV 89.4 fL (80.0-100.0); Monocytes # (A) 0.5 k/uL (0-1.0); Monocytes % (A) 6 %; Neutrophils # (A) 3.6 k/uL (1.3-7.7); Neutrophils % (A) 46 %; Platelet Count 184 k/uL (150-450); RBC 4.24 m/uL (3.80-5.40); RDW 15.1 % (11.5-15.5); WBC 7.9 k/uL (3.8-10.6)
[2018-01-22 11:18] LABS: Anion Gap 13 mmol/L; Blood Urea Nitrogen 11 mg/dL (7-17); Carbon Dioxide 29 mmol/L (22-30); Chloride 108 mmol/L (98-107); Glucose 115 mg/dL (74-99); Potassium 3.2 mmol/L (3.5-5.1); Sodium 150 mmol/L (137-145)
--- NOTE | 2018-01-22 11:18 | P.PN ---
Subjective Progress Note Date: 01/22/18 Principal diagnosis: Acute urinary tract infection and sepsis Mrs. Quintanilla is a 78-year-old white female patient of Dr. Gary, who presented to the emergency department on 01/20/2018 at 1608 with her son and daughter-in- law for investigation of hypotension and a concern of a possible urinary tract infection. Patient was at a neurologist for a routine checkup for her Parkinson 's, and she was noted to have a blood pressure of 80/50. In addition patient had been more lethargic and weak for 3 days prior to the presentation. Patient was suspected to have a urinary tract infection. She had similar symptoms in the past. Patient was hospitalized 2 months ago for a UTI and was subsequently sent to a rehabilitation center. Patient also has an underlying history of COPD , with FEV1 of 61% of predicted, consistent with moderately severe COPD, GOLD stage II. Patient had a bronchoscopy in 2015, and bronch washings were positive for pseudomonas aeruginosa. Patient has a chronic pseudomonas conization and bronchitis and she was placed on Levaquin 250 mg on Saturday, Saturday and Saturday schedule for prophylaxis, however she was taken off the Levaquin in October due to GI distress. On 10/29/2017 she was seen in the pulmonary office with complaints of chest congestion, coughing, wheezing and shortness of breath, and at that time she was treated with Depo-Medrol 80 mg IM , she was given a prednisone burst and taper, and Levaquin 500 milligrams daily for 10 days. Chest x-ray completed in the emergency room showed moderate interstitial phase pulmonary edema. Patient was given 1 L bolus of 0.9 normal saline in the emergency department for hypotension, and currently her blood pressures are 101/62 with a mean of 75, patient has been afebrile while inpatient, she denies any fever or chills, she is currently on room air with a pulse ox of 97%. She is somnolent, but easily arousable. Patient has history of macular degeneration, and is legally blind. Other history includes Parkinson 's disease, dementia, hypercholesterolemia, depression, hypertension, CVA/TIA, gait dysfunction, and the patient is wheelchair-bound. Lab work showed WBC of 6.9, sodium of 145, potassium is 3.6, CO2 of 31, BUN of 22, creatinine is 0.90, troponins and cardiac enzymes were negative 1, urinalysis was positive for nitrites, and trace leukocytes, as well as bacteria and mucus. Urine culture was sent and is pending at this time. Previously in October urine culture was positive for Klebsiella pneumoniae with resistance only to ampicillin. Plasma lactic acid was 1.2 on today's labs. Patient was empirically started on Rocephin and admitted for further management. On today's exam patient is complaining of being mildly short of breath, and some chest tightness, and the chest discomfort is reproducible. Lung sounds are coarse rales bilaterally, her cough is nonproductive. No wheezes noted. And were consulted in regards to the patient's history of recurrent pseudomonal lung infection. On 01/22/2018 patient seen again in follow-up on medical surgical floor. She is sitting up in the chair, appears very weak and lethargic, but arousable to verbal stimuli. Denies any dyspnea, denies any chest pain, lung sounds are positive for coarse rales at both bases. Pulse ox on 2 L per nasal cannula is 96%, patient is afebrile, vital signs are stable. Today's labs were reviewed, no leukocytosis, WBC 7.9, hemoglobin is 12.4. Blood culture showed no growth at the 24-hour amador, urine culture is pending. Denies any fever or chills, denies any chest congestion. She remains on Rocephin, nebulized bronchodilators , and we are still waiting on the results of the final urine culture. Her blood pressures have recovered, and her SBP is in the 140s to 150s, and her DBP is in the 90s to 100s. Patient remains on IV hydration lactated Ringer's at a rate of 50 ML per hour. Objective - Vital Signs Vital signs: Vital Signs Temp 98.3 F 01/22/18 06:30 Pulse 72 01/22/18 09:10 Resp 18 01/22/18 06:30 BP 151/76 01/22/18 06:30 Pulse Ox 96 01/22/18 09:17 Intake & Output 01/21/18 01/22/18 01/22/18 18:59 06:59 18:59 Intake Total 400 Output Total 1450 Balance -1450 400 Intake: Oral 400 Output: Urine 1450 Straight 750 Other: Voiding Method Diaper Diaper Incontinent # Voids 2 # Bowel Movements 1 - Exam Elderly, somnolent, 78-year-old white female resting in bed, easily arousable to verbal stimulation, oriented to person, but not to place or the time - Constitutional General appearance: no acute distress - EENT Pupils are equal, 4-5 mm, sluggishly reactive, patient has an underlying history of macular degeneration, and is legally blind Eyes: EOMI ENT: NA/AT - Neck Neck: no lymphadenopathy Carotids: bilateral: upstroke normal Thyroid: bilateral: normal size - Respiratory Respiratory: bilateral: diminished, rales (Coarse rales, over posterior bilateral lower bases) - Cardiovascular Rhythm: regular Heart sounds: normal: S1, S2 ankle Peripheral Edema: absent: None leg Peripheral Edema: absent: None foot Peripheral Edema: absent: None dorsalis pedis Peripheral Pulses: bilateral: Normal radial pulse Peripheral Pulses: bilateral: Normal - Gastrointestinal General gastrointestinal: no organomegaly, soft, no tenderness - Integumentary Integumentary: normal turgor - Neurologic Neurologic: CNII-XII intact - Musculoskeletal Musculoskeletal: strength equal bilaterally - Psychiatric Alert, oriented times one, to person, disoriented to place and the time Psychiatric: appropriate affect - Labs CBC & Chem 7: 01/22/18 10:24 01/21/18 07:34 Labs: Microbiology - Last 24 Hours (Table) 01/20/18 17:15 Blood Culture - Preliminary Blood No Growth after 24 hours Assessment and Plan Plan: Assessment: #1. Acute urinary tract infection and sepsis #2. Hypotension, acute mental status change, weakness secondary to the above #3. History of recurrent pseudomonal lung infections, and the patient is known to have pseudomonal colonization, and was previously on a maintenance Levaquin 250 mg on Saturday, Saturday, Saturday schedule for prophylaxis #4. Mild dyspnea, possibly related to sepsis, and mild fluid overload. No significant chest congestion noted this admission #5. Right-sided reproducible chest discomfort, troponins and cardiac enzymes were negative 1, echocardiogram from 11/20/2017 showed a preserved left ventricular systolic function of 60-65%. CT angios from 4 09/21/2017 showed no evidence of PE, but focal consolidation along the right interlobar fissure containing bronchiectasis and central 8 mm nodular density, with considerations for endobronchial neoplasm, mucus plugging or atypical infection. There was also severe three-vessel coronary artery calcification noted. #6. Recent urinary tract infection with urine culture positive for Klebsiella pneumoniae on 10/21/2017 #7. Dementia #8. Parkinson's #9. Hypertension, hyperlipidemia #10. CVA/TIA #11. Macular degeneration, and patient is legally blind in both eyes #12. Chronic cough #13. Gait dysfunction, and the patient is wheelchair-bound Plan: Patient remains weak, and lethargic, but in no acute distress, she is arousable to verbal stimuli, she is afebrile, hemodynamically stable, remains on IV hydration in the form of LR at a rate of 50 ML per hour. Continue current antibiotic coverage, urine culture is still pending, but today's labs show no leukocytosis, no fever or chills, no wheezing, no chest congestion noted on today's exam, continue nebulized bronchodilators. She is maintaining stable oxygenation on 2 L per nasal cannula. We'll continue to follow I performed a history & physical examination of the patient and discussed their management with my nurse practitioner, Irma Samayoa. I reviewed the nurse practitioner's note and agree with the documented findings and plan of care. Lung sounds are positive for bibasilar crackles. The findings and the impression was discussed with the patient. I attest to the documentation by the nurse practitioner. Time with Patient: Less than 30
[2018-01-22] MEDS ORDERED: DEXTROSE 5% IN WATER 1,000 ML IV SCH (14:00)
[2018-01-22 15:43] VITALS: BMI 32.2
[2018-01-22] MEDS: POTASSIUM CHLORIDE 10 MEQ in WATER FOR INJECTION 1 100ML.BAG IVPB SCH ×2 (16:31→17:38)
[2018-01-22] MEDS: ASPIRIN 81 MG PO SCH (21:36)
[2018-01-22] MEDS: MONTELUKAST 10 MG TAB PO SCH (21:37)
[2018-01-22] MEDS: tiZANidine 4 MG TAB PO SCH (21:37)
[2018-01-23] MEDS: HYDROcodone/APAP 10-325MG 1 EACH TAB PO PRN (05:38)
[2018-01-23] MEDS: LACTATED RINGERS 1,000 ML IV SCH ×2 (06:24→20:15)
[2018-01-23] MEDS: IPRATROPIUM-ALBUTEROL 3 ML NEB INHALATION SCH ×3 (07:32→20:07)
[2018-01-23] MEDS: cefTRIAXone IN SWFI 1,000 MG/10 ML SYRINGE IVP SCH (08:16)
[2018-01-23] MEDS: PSYLLIUM HUSK 100% 6 GM PACKET PO SCH (08:16)
[2018-01-23] MEDS: PREGABALIN 100 MG CAP PO SCH ×3 (08:16→21:01)
[2018-01-23] MEDS: rOPINIRole HCL 4 MG TABLET PO SCH ×3 (08:16→20:59)
[2018-01-23] MEDS: PANTOPRAZOLE 40 MG TABLET PO SCH (08:16)
[2018-01-23] MEDS: ISOSORBIDE MONONITRATE ER 30 MG TAB.ER.24H PO SCH (08:16)
[2018-01-23] MEDS: DULoxetine HCL 60 MG CAPSULE.DR PO SCH (08:16)
[2018-01-23] MEDS: OXYBUTYNIN XL 5 MG TAB.ER.24 PO SCH (08:16)
--- NOTE | 2018-01-23 09:23 | PN ---
PROGRESS NOTE DATE OF SERVICE: 01/22/2018 PRESENTING COMPLAINT: Weak, tired. INTERVAL HISTORY: This patient was seen by me on 01/22/2018. The patient's son is present. Patient has been tolerating her diet. Sits up on a chair with support. The patient doing better with IV fluids. Blood pressures come up nicely. Son is looking at patient going to rehab. REVIEW OF SYSTEMS: Difficult to obtain as patient is rather tired. CURRENT MEDICATIONS: Current medications are reviewed that include IV fluids and IV ceftriaxone. PHYSICAL EXAMINATION: On examination, temperature 98.3, pulse 76, respiratory 18, blood pressure 151/76, pulse ox 98% on room air. GENERAL APPEARANCE: Sitting up on a chair, tired appearing. EYES: Pupils equal. Conjunctivae normal. HENT: External appearance of nose and ears normal. Oral cavity normal NECK: JVD unable to assess. Mass not palpable. RESPIRATORY: Effort normal. LUNGS: Diminished breath sounds. Fair entry. CARDIOVASCULAR: First and second sounds normal. No edema. ABDOMEN: Soft, nontender. Liver and spleen not palpable. PSYCHIATRY: Patient can only speak a few words here and there. INVESTIGATIONS: White count 7.9. Sodium 150, potassium 3.2. ASSESSMENT: 1. Hypernatremia worsening from free water deficit. 2. Hypotension from decreased oral intake and urinary tract infection resolved. 3. Acute urinary tract infection, present on admission. 4. Dehydration. 5. Major cognitive impairment from advanced Alzheimer's dementia. 6. Medical debility. Patient uses a wheelchair. 7. Mild protein-calorie malnutrition from decreased oral intake. 8. 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 9. Parkinson disease. PLAN: Care was discussed with the son at the bedside. social worker health services looking into placement. Continued the IV fluids. Repeat labs in the morning. The patient's prognosis is not good. Potassium will be replaced. MMODL / IJN: [id number] /
[2018-01-23 09:50] LABS: Anion Gap 12 mmol/L; Blood Urea Nitrogen 9 mg/dL (7-17); Calcium 8.8 mg/dL (8.4-10.2); Carbon Dioxide 29 mmol/L (22-30); Chloride 105 mmol/L (98-107); Glucose 113 mg/dL (74-99); Potassium 3.3 mmol/L (3.5-5.1); Sodium 146 mmol/L (137-145)
--- NOTE | 2018-01-23 14:45 | P.PN ---
Subjective Progress Note Date: 01/23/18 Principal diagnosis: Acute urinary tract infection and sepsis Mrs. Quintanilla is a 78-year-old white female patient of Dr. Gary, who presented to the emergency department on 01/20/2018 at 1608 with her son and daughter-in- law for investigation of hypotension and a concern of a possible urinary tract infection. Patient was at a neurologist for a routine checkup for her Parkinson 's, and she was noted to have a blood pressure of 80/50. In addition patient had been more lethargic and weak for 3 days prior to the presentation. Patient was suspected to have a urinary tract infection. She had similar symptoms in the past. Patient was hospitalized 2 months ago for a UTI and was subsequently sent to a rehabilitation center. Patient also has an underlying history of COPD , with FEV1 of 61% of predicted, consistent with moderately severe COPD, GOLD stage II. Patient had a bronchoscopy in 2015, and bronch washings were positive for pseudomonas aeruginosa. Patient has a chronic pseudomonas conization and bronchitis and she was placed on Levaquin 250 mg on Saturday, Saturday and Saturday schedule for prophylaxis, however she was taken off the Levaquin in October due to GI distress. On 10/29/2017 she was seen in the pulmonary office with complaints of chest congestion, coughing, wheezing and shortness of breath, and at that time she was treated with Depo-Medrol 80 mg IM , she was given a prednisone burst and taper, and Levaquin 500 milligrams daily for 10 days. Chest x-ray completed in the emergency room showed moderate interstitial phase pulmonary edema. Patient was given 1 L bolus of 0.9 normal saline in the emergency department for hypotension, and currently her blood pressures are 101/62 with a mean of 75, patient has been afebrile while inpatient, she denies any fever or chills, she is currently on room air with a pulse ox of 97%. She is somnolent, but easily arousable. Patient has history of macular degeneration, and is legally blind. Other history includes Parkinson 's disease, dementia, hypercholesterolemia, depression, hypertension, CVA/TIA, gait dysfunction, and the patient is wheelchair-bound. Lab work showed WBC of 6.9, sodium of 145, potassium is 3.6, CO2 of 31, BUN of 22, creatinine is 0.90, troponins and cardiac enzymes were negative 1, urinalysis was positive for nitrites, and trace leukocytes, as well as bacteria and mucus. Urine culture was sent and is pending at this time. Previously in October urine culture was positive for Klebsiella pneumoniae with resistance only to ampicillin. Plasma lactic acid was 1.2 on today's labs. Patient was empirically started on Rocephin and admitted for further management. On today's exam patient is complaining of being mildly short of breath, and some chest tightness, and the chest discomfort is reproducible. Lung sounds are coarse rales bilaterally, her cough is nonproductive. No wheezes noted. And were consulted in regards to the patient's history of recurrent pseudomonal lung infection. On 01/22/2018 patient seen again in follow-up on medical surgical floor. She is sitting up in the chair, appears very weak and lethargic, but arousable to verbal stimuli. Denies any dyspnea, denies any chest pain, lung sounds are positive for coarse rales at both bases. Pulse ox on 2 L per nasal cannula is 96%, patient is afebrile, vital signs are stable. Today's labs were reviewed, no leukocytosis, WBC 7.9, hemoglobin is 12.4. Blood culture showed no growth at the 24-hour amador, urine culture is pending. Denies any fever or chills, denies any chest congestion. She remains on Rocephin, nebulized bronchodilators , and we are still waiting on the results of the final urine culture. Her blood pressures have recovered, and her SBP is in the 140s to 150s, and her DBP is in the 90s to 100s. Patient remains on IV hydration lactated Ringer's at a rate of 50 ML per hour. On 01/23/2018 patient is seen again in follow-up on medical surgical floor. Remains confused. Pulse ox on 2 L per nasal cannula is 96%, patient is afebrile , vital signs are stable. Denies dyspnea, denies any chest pain. Lung sounds are positive for coarse inspiratory and expiratory crackles over bilateral bases , left greater than the right. View chest x-ray has been ordered, and is pending at this time. Today's labs serum sodium is improving, and down to 146 from 150, potassium is 3.3, this was replaced per protocol, renal profile is within normal limits. Blood culture showed no growth at the 48 hour amador. Patient remains on empiric antibiotics in the form of Rocephin. Maintenance IVs lactated Ringer's at a rate of 75 ML per hour. Objective - Vital Signs Vital signs: Vital Signs Temp 98.4 F 01/23/18 06:24 Pulse 73 01/23/18 07:42 Resp 16 01/23/18 06:24 BP 144/73 01/23/18 06:24 Pulse Ox 96 01/23/18 06:24 Intake & Output 01/22/18 01/23/18 01/23/18 18:59 06:59 18:59 Output Total 1220 1550 Balance -1220 -1550 Weight 74.843 kg 74.843 kg Output: Urine 750 1550 Straight 750 Post Void Residual 470 Other: Voiding Method Incontinent Indwelling Catheter Indwelling Catheter # Voids 1 - Exam Elderly, somnolent, 78-year-old white female resting in bed, easily arousable to verbal stimulation, oriented to person, but not to place or the time - Constitutional General appearance: no acute distress - EENT Pupils are equal, 4-5 mm, sluggishly reactive, patient has an underlying history of macular degeneration, and is legally blind Eyes: EOMI ENT: NA/AT - Neck Neck: no lymphadenopathy Carotids: bilateral: upstroke normal Thyroid: bilateral: normal size - Respiratory Respiratory: bilateral: diminished, rales (Coarse rales, over posterior bilateral lower bases) - Cardiovascular Rhythm: regular Heart sounds: normal: S1, S2 ankle Peripheral Edema: absent: None leg Peripheral Edema: absent: None foot Peripheral Edema: absent: None dorsalis pedis Peripheral Pulses: bilateral: Normal radial pulse Peripheral Pulses: bilateral: Normal - Gastrointestinal General gastrointestinal: no organomegaly, soft, no tenderness - Integumentary Integumentary: normal turgor - Neurologic Neurologic: CNII-XII intact - Musculoskeletal Musculoskeletal: strength equal bilaterally - Psychiatric Alert, oriented times one, to person, disoriented to place and the time Psychiatric: appropriate affect - Labs CBC & Chem 7: 01/22/18 10:24 01/23/18 08:38 Labs: Abnormal Lab Results - Last 24 Hours (Table) 01/23/18 Range/Units 08:38 Sodium 146 H (137-145) mmol/L Potassium 3.3 L (3.5-5.1) mmol/L Glucose 113 H (74-99) mg/dL Microbiology - Last 24 Hours (Table) 01/20/18 17:30 Urine Culture - Final Urine,Catheterized Staphylococcus epidermidis 01/20/18 17:15 Blood Culture - Preliminary Blood No Growth after 48 hours Assessment and Plan Plan: Assessment: #1. Acute urinary tract infection and sepsis #2. Hypotension, acute mental status change, weakness secondary to the above. Hypotension has resolved #3. History of recurrent pseudomonal lung infections, and the patient is known to have pseudomonal colonization, and was previously on a maintenance Levaquin 250 mg on Saturday, Saturday, Saturday schedule for prophylaxis #4. Mild dyspnea, possibly related to sepsis, and mild fluid overload. No significant chest congestion noted this admission. Admission chest x-ray showed moderate interstitial pulmonary edema possible infiltrate in the left lower lobe, repeat 2 view chest x-ray today #5. Right-sided reproducible chest discomfort, troponins and cardiac enzymes were negative 1, echocardiogram from 11/20/2017 showed a preserved left ventricular systolic function of 60-65%. CT angios from 4 09/21/2017 showed no evidence of PE, but focal consolidation along the right interlobar fissure containing bronchiectasis and central 8 mm nodular density, with considerations for endobronchial neoplasm, mucus plugging or atypical infection. There was also severe three-vessel coronary artery calcification noted. #6. Recent urinary tract infection with urine culture positive for Klebsiella pneumoniae on 10/21/2017 #7. Dementia #8. Parkinson's #9. Hypertension, hyperlipidemia #10. CVA/TIA #11. Macular degeneration, and patient is legally blind in both eyes #12. Chronic cough #13. Gait dysfunction, and the patient is wheelchair-bound Plan: Continue current antibiotic coverage. Patient denies any dyspnea or chest pain , she is afebrile, she does have coarse crackles bilaterally, more so on the left, and in view of her history of chronic pseudomonal infections, will obtain CT chest without contrast today to rule out pneumonia. I performed a history & physical examination of the patient and discussed their management with my nurse practitioner, Irma Samayoa. I reviewed the nurse practitioner's note and agree with the documented findings and plan of care. Lung sounds are positive for bibasilar crackles. The findings and the impression was discussed with the patient. I attest to the documentation by the nurse practitioner. Time with Patient: Less than 30
[2018-01-23] MEDS: POTASSIUM CHLORIDE 10 MEQ in WATER FOR INJECTION 1 100ML.BAG IVPB SCH ×2 (14:50→15:57)
--- NOTE | 2018-01-23 16:04 | CT ---
EXAMINATION TYPE: CT chest wo con DATE OF EXAM: 01/23/2018 COMPARISON: 11/19/2017 HISTORY: 324.5 CT DLP: LLL infiltrate mGycm High-resolution noncontrast CT of the chest was performed with the patient in the supine positions. Patient is unable to lay prone for prone imaging. Lung and mediastinal window settings are submitted. There is mild right upper lobe bronchiectasis. There is bronchial wall thickening seen bilaterally. B ronchial wall calcifications also noted. Stable Focal consolidation along the right interlobar fissur e containing bronchiectasis and a central 7mm nodular density. Considerations are for endobronchial n eoplasm, mucus plugging, or atypical infection such as aspergillosis. Bronchoscopy could be performed . No new areas of infiltrate. Minimal scattered subpleural fibrosis. Cardiomegaly. Coronary artery ca lcifications. Atheromatous and ectatic change thoracic aorta. IMPRESSION: 1. Findings felt to reflect atypical infection such as aspergillosis. Mucus plugging or endobronchial lung neoplasm not excluded. Consider bronchoscopy.
--- NOTE | 2018-01-23 20:32 | PN ---
PROGRESS NOTE DATE OF SERVICE: 01/23/2018. PRESENTING COMPLAINT: Weak and tired. INTERVAL HISTORY: The patient has been tolerating a diet reasonably, was hyponatremic, getting IV fluids, able answer some questions, appears comfortable. Informed later this afternoon that patient is not a candidate for rehab. REVIEW OF SYSTEMS: Difficult to obtain because the patient has dementia. CURRENT MEDICATIONS: Reviewed, include IV ceftriaxone. EXAMINATION: Temperature 98.4, pulse 69, respirations 16, blood pressure 140/73, pulse ox 96% on 2L. GENERAL APPEARANCE: Lying in bed, tired-appearing. EYES: Pupils equal. Conjunctivae normal. HEENT: External nose and ears normal. Oral cavity normal. NECK: JVD not raised. Mass not palpable. RESPIRATORY: Effort normal. LUNGS: Decreased breath sounds. Fair air entry. CARDIOVASCULAR: First and second sounds normal. No edema. ABDOMEN: Soft, nontender. Liver and spleen not palpable. PSYCHIATRY: Patient can answer some questions. INVESTIGATIONS: Sodium 146, potassium 3.3. ASSESSMENT: 1. Hypernatremia from free water deficit, slowly improving. 2. Hypotension from decreased oral intake and urinary tract infection, resolved. 3. Acute urinary tract infection, present on admission. 4. Dehydration. 5. Major cognitive impairment from advanced Alzheimer dementia. 6. Medical debility. Patient uses a wheelchair. 7. Mild protein-calorie malnutrition from decreased oral intake. 8. 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 9. Parkinson disease. 10.Acute urinary tract infection from Staphylococcus epidermidis. PLAN: Will switch the patient's IV ceftriaxone to nitrofurantoin, phenytoin. We will keep the patient on IV fluids going today. The patient will be going home after social media content specialist has arranged for the same. The patient's CT scan findings are noted. Given that the patient has advanced dementia and the patient actually has minimal, if any; in fact, patient reports no respiratory symptoms, I would not be too excited about doing any further workup. MMODL / IJN: [id number] /
[2018-01-23] MEDS: tiZANidine 4 MG TAB PO SCH (20:58)
[2018-01-23] MEDS: ASPIRIN 81 MG PO SCH (20:59)
[2018-01-23] MEDS: NITROFURANTOIN MONOHYD/M-CRYST 100 MG CAP PO SCH (20:59)
[2018-01-23] MEDS: MONTELUKAST 10 MG TAB PO SCH (20:59)
[2018-01-24] MEDS: IPRATROPIUM-ALBUTEROL 3 ML NEB INHALATION SCH ×2 (07:17→13:29)
[2018-01-24 08:09] LABS: Anion Gap 8 mmol/L; Blood Urea Nitrogen 11 mg/dL (7-17); Calcium 8.9 mg/dL (8.4-10.2); Carbon Dioxide 32 mmol/L (22-30); Chloride 107 mmol/L (98-107); Glucose 90 mg/dL (74-99); Sodium 147 mmol/L (137-145)
[2018-01-24] MEDS: OXYBUTYNIN XL 5 MG TAB.ER.24 PO SCH (09:09)
[2018-01-24] MEDS: NITROFURANTOIN MONOHYD/M-CRYST 100 MG CAP PO SCH (09:09)
[2018-01-24] MEDS: PREGABALIN 100 MG CAP PO SCH ×2 (09:09→15:28)
[2018-01-24] MEDS: PANTOPRAZOLE 40 MG TABLET PO SCH (09:09)
[2018-01-24] MEDS: ISOSORBIDE MONONITRATE ER 30 MG TAB.ER.24H PO SCH (09:09)
[2018-01-24] MEDS: DULoxetine HCL 60 MG CAPSULE.DR PO SCH (09:09)
[2018-01-24] MEDS: rOPINIRole HCL 4 MG TABLET PO SCH ×2 (09:09→15:29)
[2018-01-24] MEDS: LACTATED RINGERS 1,000 ML IV SCH (09:10)
[2018-01-24] MEDS: PSYLLIUM HUSK 100% 6 GM PACKET PO SCH (09:14)
--- NOTE | 2018-01-24 12:59 | P.PN ---
Subjective Progress Note Date: 01/24/18 Principal diagnosis: Acute urinary tract infection and sepsis Mrs. Quintanilla is a 78-year-old white female patient of Dr. Gary, who presented to the emergency department on 01/20/2018 at 1608 with her son and daughter-in- law for investigation of hypotension and a concern of a possible urinary tract infection. Patient was at a neurologist for a routine checkup for her Parkinson 's, and she was noted to have a blood pressure of 80/50. In addition patient had been more lethargic and weak for 3 days prior to the presentation. Patient was suspected to have a urinary tract infection. She had similar symptoms in the past. Patient was hospitalized 2 months ago for a UTI and was subsequently sent to a rehabilitation center. Patient also has an underlying history of COPD , with FEV1 of 61% of predicted, consistent with moderately severe COPD, GOLD stage II. Patient had a bronchoscopy in 2015, and bronch washings were positive for pseudomonas aeruginosa. Patient has a chronic pseudomonas conization and bronchitis and she was placed on Levaquin 250 mg on Saturday, Saturday and Saturday schedule for prophylaxis, however she was taken off the Levaquin in October due to GI distress. On 10/29/2017 she was seen in the pulmonary office with complaints of chest congestion, coughing, wheezing and shortness of breath, and at that time she was treated with Depo-Medrol 80 mg IM , she was given a prednisone burst and taper, and Levaquin 500 milligrams daily for 10 days. Chest x-ray completed in the emergency room showed moderate interstitial phase pulmonary edema. Patient was given 1 L bolus of 0.9 normal saline in the emergency department for hypotension, and currently her blood pressures are 101/62 with a mean of 75, patient has been afebrile while inpatient, she denies any fever or chills, she is currently on room air with a pulse ox of 97%. She is somnolent, but easily arousable. Patient has history of macular degeneration, and is legally blind. Other history includes Parkinson 's disease, dementia, hypercholesterolemia, depression, hypertension, CVA/TIA, gait dysfunction, and the patient is wheelchair-bound. Lab work showed WBC of 6.9, sodium of 145, potassium is 3.6, CO2 of 31, BUN of 22, creatinine is 0.90, troponins and cardiac enzymes were negative 1, urinalysis was positive for nitrites, and trace leukocytes, as well as bacteria and mucus. Urine culture was sent and is pending at this time. Previously in October urine culture was positive for Klebsiella pneumoniae with resistance only to ampicillin. Plasma lactic acid was 1.2 on today's labs. Patient was empirically started on Rocephin and admitted for further management. On today's exam patient is complaining of being mildly short of breath, and some chest tightness, and the chest discomfort is reproducible. Lung sounds are coarse rales bilaterally, her cough is nonproductive. No wheezes noted. And were consulted in regards to the patient's history of recurrent pseudomonal lung infection. On 01/22/2018 patient seen again in follow-up on medical surgical floor. She is sitting up in the chair, appears very weak and lethargic, but arousable to verbal stimuli. Denies any dyspnea, denies any chest pain, lung sounds are positive for coarse rales at both bases. Pulse ox on 2 L per nasal cannula is 96%, patient is afebrile, vital signs are stable. Today's labs were reviewed, no leukocytosis, WBC 7.9, hemoglobin is 12.4. Blood culture showed no growth at the 24-hour amador, urine culture is pending. Denies any fever or chills, denies any chest congestion. She remains on Rocephin, nebulized bronchodilators , and we are still waiting on the results of the final urine culture. Her blood pressures have recovered, and her SBP is in the 140s to 150s, and her DBP is in the 90s to 100s. Patient remains on IV hydration lactated Ringer's at a rate of 50 ML per hour. On 01/23/2018 patient is seen again in follow-up on medical surgical floor. Remains confused. Pulse ox on 2 L per nasal cannula is 96%, patient is afebrile , vital signs are stable. Denies dyspnea, denies any chest pain. Lung sounds are positive for coarse inspiratory and expiratory crackles over bilateral bases , left greater than the right. View chest x-ray has been ordered, and is pending at this time. Today's labs serum sodium is improving, and down to 146 from 150, potassium is 3.3, this was replaced per protocol, renal profile is within normal limits. Blood culture showed no growth at the 48 hour amador. Patient remains on empiric antibiotics in the form of Rocephin. Maintenance IVs lactated Ringer's at a rate of 75 ML per hour. On 01/24/2018 patient seen in follow-up. She is resting in bed, denies any shortness of breath, denies any chest pain. Denies any fever or chills, denies any chest wall pain, denies any increasing chest congestion. Lung sounds are positive for coarse crackles bilaterally, more so on the left. CT chest results were noted and showed mucus plugging, bronchiectasis, and mild pulmonary fibrosis were noted. Today's labs were noted, serum sodium is 147, potassium is 4.0, CO2 is 32, BUN is 11, creatinine is 0.62. Vitals have been stable, patient has been afebrile. Urine culture was positive for Staphylococcus epidermidis, the patient's Rocephin was switched over to nitrofurantoin. Objective - Vital Signs Vital signs: Vital Signs Temp 98.4 F 01/24/18 07:00 Pulse 76 01/24/18 07:27 Resp 14 01/24/18 07:00 BP 130/68 01/24/18 07:00 Pulse Ox 95 01/24/18 07:00 Intake & Output 01/23/18 01/24/18 01/24/18 18:59 06:59 18:59 Intake Total 200 Output Total 800 850 850 Balance -600 -850 -850 Weight 74.843 kg Intake: Oral 200 Output: Urine 800 850 850 Other: Voiding Method Indwelling Catheter Indwelling Catheter # Bowel Movements 0 - Exam Elderly, somnolent, 78-year-old white female resting in bed, easily arousable to verbal stimulation, oriented to person, but not to place or the time - Constitutional General appearance: no acute distress - EENT Pupils are equal, 4-5 mm, sluggishly reactive, patient has an underlying history of macular degeneration, and is legally blind Eyes: EOMI ENT: NA/AT - Neck Neck: no lymphadenopathy Carotids: bilateral: upstroke normal Thyroid: bilateral: normal size - Respiratory Respiratory: bilateral: diminished, rales (Coarse rales, over posterior bilateral lower bases, left greater than the right) - Cardiovascular Rhythm: regular Heart sounds: normal: S1, S2 ankle Peripheral Edema: absent: None leg Peripheral Edema: absent: None foot Peripheral Edema: absent: None dorsalis pedis Peripheral Pulses: bilateral: Normal radial pulse Peripheral Pulses: bilateral: Normal - Gastrointestinal General gastrointestinal: no organomegaly, soft, no tenderness - Integumentary Integumentary: normal turgor - Neurologic Neurologic: CNII-XII intact - Musculoskeletal Musculoskeletal: strength equal bilaterally - Psychiatric Alert, oriented times one, to person, disoriented to place and the time Psychiatric: appropriate affect - Labs CBC & Chem 7: 01/22/18 10:24 01/24/18 07:22 Labs: Abnormal Lab Results - Last 24 Hours (Table) 01/24/18 Range/Units 07:22 Sodium 147 H (137-145) mmol/L Carbon Dioxide 32 H (22-30) mmol/L Microbiology - Last 24 Hours (Table) 01/20/18 17:15 Blood Culture - Preliminary Blood No Growth after 72 hours Assessment and Plan Plan: Assessment: #1. Acute urinary tract infection and sepsis #2. Hypotension, acute mental status change, weakness secondary to the above. Hypotension has resolved #3. History of recurrent pseudomonal lung infections, and the patient is known to have pseudomonal colonization, and was previously on a maintenance Levaquin 250 mg on Saturday, Saturday, Saturday schedule for prophylaxis #4. Mild dyspnea, possibly related to sepsis, and mild fluid overload. No significant chest congestion noted this admission. Admission chest x-ray showed moderate interstitial pulmonary edema possible infiltrate in the left lower lobe, repeat 2 view chest x-ray today #5. Right-sided reproducible chest discomfort, troponins and cardiac enzymes were negative 1, echocardiogram from 11/20/2017 showed a preserved left ventricular systolic function of 60-65%. CT angios from 4 09/21/2017 showed no evidence of PE, but focal consolidation along the right interlobar fissure containing bronchiectasis and central 8 mm nodular density, with considerations for endobronchial neoplasm, mucus plugging or atypical infection. There was also severe three-vessel coronary artery calcification noted. #6. Recent urinary tract infection with urine culture positive for Klebsiella pneumoniae on 10/21/2017 #7. Dementia #8. Parkinson's #9. Hypertension, hyperlipidemia #10. CVA/TIA #11. Macular degeneration, and patient is legally blind in both eyes #12. Chronic cough #13. Gait dysfunction, and the patient is wheelchair-bound Plan: Patient's CT chest results have been reviewed, and showed bronchiectasis, mucus plugging, and mild pulmonary fibrosis. In view of patient's past history of pseudomonal lung infections, we will place her on 10 day course of ciprofloxacin. Otherwise patient is stable for discharge, and follow-up with Dr. Moncada in the office within 7-10 days I performed a history & physical examination of the patient and discussed their management with my nurse practitioner, Irma Samayoa. I reviewed the nurse practitioner's note and agree with the documented findings and plan of care. Lung sounds are positive for bibasilar crackles. The findings and the impression was discussed with the patient. I attest to the documentation by the nurse practitioner. Time with Patient: Less than 30
--- NOTE | 2018-01-24 13:30 | CDI ---
Last Revision, July 2017 Documentation Clarification Form Date: 01/24/18 8040 From: Rashmi Dillon RN, CCDS Admit Date: 01/20/2018 7:50:00 PM Patient Name: Preeti Quintanilla Visit Number: [id number] ATTENTION: The Clinical Documentation Specialists (CDI) and [facility] Coding Staff appreciate your assistance in clarifying documentation. Please respond to the clarification below the line at the bottom and electronically sign. The CDI & [facility] Coding staff will review the response and follow-up if needed. Please note: Queries are made part of the Legal Health Record. If you have any questions, please contact the author of this message via ITS. Dr. Gui Mcdonald Sepsis is documented by the Pulmonary Consult throughout the chart. History/Risk Factors: Alzheimers dementia, HTN, Parkinson's disease, COPD, Pseudomonal lung infections Clinical Indicators: 01/21 Pulmonary consult: Patient was at a neurologist for a routine checkup for her Parkinson's, and she was noted to have a blood pressure of 80/50. In addition patient had been more lethargic and weak for 3 days prior to the presentation. Patient was suspected to have a urinary tract infection. Acute urinary tract infection and sepsis. Hypotension, acute mental status change, weakness secondary to the above WBC: 6.9/5.9/7.9 Left Shift: 3.5/2.6/3.6 Lactic acid: 1.2 Blood cultures: negative after 72 hrs Urine CX: + staph epidermis Vitals signs on admission: temp 98, hr 87, RR 18, B/P 110/55, spo2 95% ra Treatment: Antibiotics: Rocephin IVP 1gm Q 24 hrs IV Bolus: 500 cc fluid bolus followed by LR @ 75 cc/ hr In your professional opinion, please clarify if these findings signify one of the following conditions, whether the condition is POA, and cause, if known: Condition Sepsis ruled out Sepsis ruled in Severe Sepsis Septic Shock Other, please specify Unable to determine Present on Admission: Yes No Identify the (suspected) organism Link or clarify if there is associated (due to/with): Organ failure Shock SIRS Criteria...2 or more of the following may indicate SIRS: Temperature < 96.8F (36C) or > 101.0F (38.3C) Heart Rate > 90 bpm Respiratory Rate > 20 breaths/min or PaCO2 < 32 mmHg White Blood Cell Count > 12,000 or < 4,000 cells/mm3 or > 10% bands Lactate >2.0 mmol/L (>4.0 is equivalent to septic shock) Please continue to document in your progress notes and discharge summary in order to capture severity of illness and risk of mortality. Include clinical findings that support your diagnosis. NO SEPSIS MTDD
--- NOTE | 2018-01-24 13:40 | CDI ---
Last Revision, July 2017 Documentation Clarification Form Date: 01/24/18 7522 From: Rashmi Dillon RN, CCDS Admit Date: 01/20/2018 7:50:00 PM Patient Name: Preeti Quintanilla Visit Number: [id number] ATTENTION: The Clinical Documentation Specialists (CDI) and [facility] Coding Staff appreciate your assistance in clarifying documentation. Please respond to the clarification below the line at the bottom and electronically sign. The CDI & [facility] Coding staff will review the response and follow-up if needed. Please note: Queries are made part of the Legal Health Record. If you have any questions, please contact the author of this message via ITS. Dr. Gui Mcdonald Altered mental status was documented in the EC and Pulmonary notes Patient history/risk factors: Alzheimers dementia, Parkinson's disease, COPD, UTI w/ Sepsis this admission Clinical Indicators: 01/20 ED Note: "has had increased states her confusion at times over the last 3 days." 01/21-01/23 Pulmonary Consult and progress notes: "Hypotension, acute mental status change, weakness secondary to the above. (Sepsis with UTI) 01/23 Pulmonary: "remains confused." Labs: NA+ 147/150/146, + UTI 01/20 CXR:- CT Chest: "Findings felt to reflect atypical infection such as aspergillosis. Mucus plugging or endobronchial lung neoplasm not excluded." Treatment: IVF Bolus, IV Antibiotic In your professional opinion, please clarify the etiology of the altered mental status, if known. Encephalopathy (specify Type- Metabolic, Toxic, Septic, Anoxic and Underlying Medical Illness) Dementia (if know, specify Type and if with/without Behavioral Disturbance) Other condition (please specify) Unable to determine Please continue to document in your progress notes and discharge summary in order to capture severity of illness and risk of mortality. Include clinical findings that support your diagnosis. see documentaion-dc summary( no additional change) MTDD
[2018-01-24 15:14] VITALS: RESP 16
--- NOTE | 2018-01-24 15:18 | DS ---
DISCHARGE SUMMARY DATE OF ADMISSION: 01/20/2018 DATE OF DISCHARGE: 01/24/2018 FINAL DIAGNOSES: 1. Acute urinary tract infection from Staphylococcus epidermidis. 2. Hypernatremia from free water deficit. 3. Hypotension from decreased oral intake and urinary tract infection. 4. Dehydration. 5. Major cognitive impairment from advanced Alzheimer's dementia. 6. Medical debility. Patient uses a wheelchair. 7. Mild protein-calorie malnutrition from decreased oral intake. 8. 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 9. Parkinson's disease. HOSPITAL COURSE: This patient presented weak, tired, rundown. At her baseline she has dementia; difficult to communicate. She was found to have a UTI from Staphylococcus epidermidis. Patient also has been treated for bronchiectasis off and on for some time and additional antibiotics were ordered by Dr. Castle, though patient's symptoms are minimal. Patient is tolerating some diet with assistance. Patient overall prognosis is poor. CT scan of the brain shows chronic changes. Chest CT also showed some chronic changes of bronchiectasis patient does not have any cough. No sputum production. Afebrile. Normal white count. PHYSICAL EXAMINATION: LUNGS: Decreased breath sounds. Patient is blind. Able to answer some occasional questions. DISCHARGE MEDICATIONS: 1. Toviaz 4 mg p.o. daily. 2. Cymbalta 60 mg p.o. daily. 3. Singulair 10 mg at bedtime. 4. Zanaflex 4 mg p.o. at bedtime. 5. Metamucil 6 grams p.o. daily. 6. Imdur ER 30 mg p.o. daily. 7. Nitrostat 0.4 sublingually q.5 p.r.n. 8. Protonix 40 mg p.o. with breakfast. 9. Requip 4 mg p.o. t.i.d. 10.Slow iron 142 mg p.o. at bedtime. 11.Aspirin 81 mg p.o. at bedtime. 12.Cipro 500 mg p.o. q.12; 14 tablets. 13.Jasper 10 one tablet q.6 p.r.n. 14.DuoNeb b.i.d. 15.Macrobid 100 mg p.o. b.i.d.; 14 capsules. 16.Lyrica 100 mg p.o. t.i.d. DISPOSITION: [place]. Follow up with Dr. Moncada in one week. Follow up with Dr. Gary at [facility]. Prognosis poor. SPECIAL NOTE: Fall precautions. MMODL / IJN: [id number] /
[2018-01-24 15:42] VITALS: BP 112/60; PULSE 92; TEMP 98.7
== END 2018-01-24 19:02 | DRG 690 ==
LOC: EC 16:08 → 4MS4W 19:50
PROVIDERS: ADMIT Hospitalist; ATTEND Hospitalist
DX: N39.0 Urinary tract infection, site not specified (principal); E44.1 Mild protein-calorie malnutrition; E87.0 Hyperosmolality and hypernatremia; J81.1 Chronic pulmonary edema; E78.00 Pure hypercholesterolemia, unspecified; E78.5 Hyperlipidemia, unspecified; E86.0 Dehydration; F02.80 Dementia in other diseases classified elsewhere, unspecified severity, without behavioral disturbance, psychotic disturbance, mood disturbance, and anxiety; F32.9 Major depressive disorder, single episode, unspecified; G20 Parkinson's disease; G30.9 Alzheimer's disease, unspecified; H35.30 Unspecified macular degeneration; H54.8 Legal blindness, as defined in USA; I10 Essential (primary) hypertension; I25.10 Atherosclerotic heart disease of native coronary artery without angina pectoris; J44.9 Chronic obstructive pulmonary disease, unspecified; J84.10 Pulmonary fibrosis, unspecified; T17.990A Other foreign object in respiratory tract, part unspecified in causing asphyxiation, initial encounter; Z79.82 Long term (current) use of aspirin; Z79.899 Other long term (current) drug therapy; Z82.49 Family history of ischemic heart disease and other diseases of the circulatory system; Z82.5 Family history of asthma and other chronic lower respiratory diseases; Z86.73 Personal history of transient ischemic attack (TIA), and cerebral infarction without residual deficits; Z99.3 Dependence on wheelchair; R53.81 Other malaise; Z87.440 Personal history of urinary (tract) infections; R26.9 Unspecified abnormalities of gait and mobility
CPT/HCPCS: 36415; 70450; 71046; 71250; 80048; 80053; 81001; 82550; 82553; 83605; 84132; 84484; 85025; 85610; 85730; 87040; 87077; 87086; 87186; 93005; 94640; 94760; 96374; 99285